=== PATIENT | female | born 1945 | race Caucasian/White ===

== ENCOUNTER → 2017-09-11 12:48 | Outpatient (CLI) | payer MEDICARE, OTHER, SELFPAY | PROVIDERS: Family Provider Internal Medicine; PCP Internal Medicine; Visit Provider Internal Medicine | DX: M85.852 Other specified disorders of bone density and structure, left thigh (principal) | CPT/HCPCS: 77080 ==

== ENCOUNTER 2017-10-21 10:00 | Outpatient (RCR) | payer MEDICARE, OTHER, SELFPAY ==
[2017-09-10 11:56] VITALS: BP 128/60; O2SAT 98; BMI 28.4
--- NOTE | 2017-09-10 12:21 | CR.IEVALNOTE ---
Addendum entered and electronically signed by Naye Harper R.N. 09/18/17 11:46: Due to computer issues unable to deliver document for signature to provider.[facility] Original Note: Addendum entered and electronically signed by Naye Harper R.N. 09/10/17 13:24: * Original Note: Addendum entered by Silva Hurst 09/10/17 13:03: Original Note: CR Initial Assessment Report 4.18.18 AVR CR Cardiac Rehab Initial Assessment Start: 09/10/17 11:30 Freq: Status: Active Protocol: Document 09/10/17 11:56 [facility] (Rec: 09/10/17 12:21 [facility] [id number]) Cardiac Rehabilitation Exercise Risk Risk Moderate % 65 EF Comment: Normal coronary arteries AICD No Pacemaker No Heart Rhythm NSR Right Arm Blood Pressure (90/60-120/80 mmHg) 128/60 H Blood Pressure Method Manual Cuff/Auscultation BP Comment: LEFT 118/78 Apical Resting Heart Rate: 85 Target Heart Rate: 105 Strength: Normal Pulse Rhythm: Regular Pulse Assessment Method Pulse Ox/Monitor Respiratory Effort Non-Labored Lung Sounds: CLEAR BILATERALLY Pulse Oximetry (91-100 %) 98 Nasal Cannula No Cardiac Rehabilitation Nutrition Evaluation Recent Lipid Blood Test Yes Date Blood Test Drawn 10/10/15 Total Cholesterol 311 Triglycerides 132 HDL 68 LDL 217 Lipid Medications Yes: ATORVASTATIN 40MG Goal for Lipids CORONARIES ARE CLEAN History of Diabetes No Cardiac Rehabilitation Weight Management Plan Height 165.1 cm Weight 77.564 kg Body Mass Index (BMI) 28.4 Girth Measurement (in inches) (cm) 45 Patient Goal(s) Lose 1-2 of Girth Lose 5-10 lbs Body Weight BMI Goal of 19-25 Nutrition Evaluation Referral to Diabetes Education No Nurse/Patient Discussion Yes: STATES SHE EATS HEALTHY AND IS DOING PORTION CONTROL BUT CANT LOSE WEIGHT. Patient Following Diet Plan No Patient's Nutritional Goals SHE FEELS ONCE HER HIP SURGERY IS DONE SHE WILL EXERCISE MORE AND LOSE WEIGHT Education Primary Language [place] Hearing Ability Normal Visual Impairment No Limitations Visual Difficutly None Education on Intake Short of Breath Musculoskeletal Pain Tobacco Use N/A Hx Hypertension No Goal of BP <130/80 No Medications Reconciled Yes CR Psychosocial Evaluation Goal GIVE HER CONFEDENCE TO GET IN BETTER SHAPE BEFORE HER HIP SURGERY. Identifies Stressors PAIN IN HER HIP WHICH IS ALSO AFFECTING HER KNEES. 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 DISCUSSED ELEVATING HER LEGS AT NIGHT Stress Management Class Yes Heart Disease & Emotion Film Yes Readiness Cooperative Motivated Patient's Story WENT IN FOR PRE TESTING FOR TOTAL HIP AND MURMUR HAD GOTTEN MUCH WORSE. ECHO SHOWED SEVERE REGURGITATION Treatment Prescribed for Individual Yes Needs Date 09/10/17
--- NOTE | 2017-09-10 12:56 | CR.IEVALNOTE ---
Addendum entered and electronically signed by Doris Craven R.N. 09/12/17 10:24: Computer issues. resending for signatures. Original Note: CR Initial Assessment Report CR Cardiac Rehab Initial Assessment Start: 09/10/17 11:30 Freq: Status: Active Protocol: Document 09/10/17 11:56 [facility] (Rec: 09/10/17 12:21 [facility] [id number]) Cardiac Rehabilitation Exercise Risk Risk Moderate % 65 EF Comment: Normal coronary arteries AICD No Pacemaker No Heart Rhythm NSR Right Arm Blood Pressure (90/60-120/80 mmHg) 128/60 H Blood Pressure Method Manual Cuff/Auscultation BP Comment: LEFT 118/78 Apical Resting Heart Rate: 85 Target Heart Rate: 105 Strength: Normal Pulse Rhythm: Regular Pulse Assessment Method Pulse Ox/Monitor Respiratory Effort Non-Labored Lung Sounds: CLEAR BILATERALLY Pulse Oximetry (91-100 %) 98 Nasal Cannula No Cardiac Rehabilitation Nutrition Evaluation Recent Lipid Blood Test Yes Date Blood Test Drawn 10/10/15 Total Cholesterol 311 Triglycerides 132 HDL 68 LDL 217 Lipid Medications Yes: ATORVASTATIN 40MG Goal for Lipids CORONARIES ARE CLEAN History of Diabetes No Cardiac Rehabilitation Weight Management Plan Height 165.1 cm Weight 77.564 kg Body Mass Index (BMI) 28.4 Girth Measurement (in inches) (cm) 45 Patient Goal(s) Lose 1-2 of Girth Lose 5-10 lbs Body Weight BMI Goal of 19-25 Nutrition Evaluation Referral to Diabetes Education No Nurse/Patient Discussion Yes: STATES SHE EATS HEALTHY AND IS DOING PORTION CONTROL BUT CANT LOSE WEIGHT. Patient Following Diet Plan No Patient's Nutritional Goals SHE FEELS ONCE HER HIP SURGERY IS DONE SHE WILL EXERCISE MORE AND LOSE WEIGHT Education Primary Language DOMINICAN Hearing Ability Normal Visual Impairment No Limitations Visual Difficutly None Education on Intake Short of Breath Musculoskeletal Pain Tobacco Use N/A Hx Hypertension No Goal of BP <130/80 No Medications Reconciled Yes CR Psychosocial Evaluation Goal GIVE HER CONFEDENCE TO GET IN BETTER SHAPE BEFORE HER HIP SURGERY. Identifies Stressors PAIN IN HER HIP WHICH IS ALSO AFFECTING HER KNEES. 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 Ready for Change Number 20 CR Psychosocial Eval Continued Sternotomy Incision WELL HEALED Graft Site & Incision N/A Heart Murmur SLIGHT Lung Sounds CLEAR Edema SLIGHT. DISCUSSED ELEVATING HER LEGS AT NIGHT Stress Management Class Yes Heart Disease & Emotion Film Yes Readiness Cooperative Motivated Patient's Story WENT IN FOR PRE TESTING FOR TOTAL HIP AND MURMUR HAD GOTTEN MUCH WORSE. ECHO SHOWED SEVERE REGURGITATION Treatment Prescribed for Individual Yes Needs Date 09/10/17 Document 09/10/17 12:28 [facility] (Rec: 09/10/17 12:56 [facility] [id number]) Cardiac Rehabilitation Exercise Fall Risk History of Falling (Immediate or No Previous) Secondary Diagnosis (More Than 2 Medical Yes Diagnoses) Ambulatory Aid Crutches/cane/walker IV/Heparin Lock No Gait/Transferring Impaired Mental Status Oriented to own ability Score Total 50 Risk Level High Fall Risk Action Implement High Fall Risk Precautions Comment Large green ball on saucer to decrease angle on hip, next to hand rail Assistive Devices Cane Comment: R Hip, due for surgery, postponed due to Valve repair [place] Activity Status Index 5.04 Home Exercise walking Mode Comment: outside Duration Comment: 10-20 min Frequency Comment: daily Symptoms: Abnormal Gait Difficulty Walking Joint Pain Joint Stiffness Joint Swelling Limited Range of Motion Body Alignment Posture Leaning Ambulation Assistive Device Straight Cane Orthotic/Prosthetic Devices or Brace: No Comment Significant hip pain, requires surgery, postponed due to valve replacement, sternal precautions. L plantar fasciaitis Exercise Nustep METS 2.67 Angina with Exercise no Exercise Tolerance Good Additional Comment Hip pain is limiting factor CR Pre Exercise Evaluation Orientation Self Pulse Check JAMAAL PRE Scale Exercise Safety Equipment Orientation Warm Up/Cool Down Patient Short-term Goal(s) Return to walking, significant hip pain with walking. Increase strength and endurance to be able to do 15- 20 mins on TM in CR in 8 weeks . Patient Group Home Goal(s) Strengthen R Hip to increase stamina and endurance to be able to walk [employer]) and return to gardening by performing all sit to stands and squats unassissted in 12 weeks. CR Exercises Prescription Exercise Duration (minutes) 20 METs (resistance level) 3 Frequency 2xwk RPE 11-14 Comment No arms, monitor hip pain Bicycle RPM (rpm) 50 Bicycle Exercise Duration (minutes) 20 Frequency 2xwk RPE 11-14 Bicycle Exercise Comment Monitor hip pain Pounds 2 Number of Reps 12 Number of Sets 2 Frequency 1xwk RPE 11-13 Comment sternal precautions, monitor hip pain Band Resistance 2 Number of Reps 12 Number of Sets 1 Frequency 1xwk RPE 11-13 Comment sternal precautions, saucer w green ball, monitor hip pain
--- NOTE | 2017-09-10 13:07 | CR.IEVALNOTE ---
CR Initial Assessment Report CR Cardiac Rehab Initial Assessment Start: 09/10/17 11:30 Freq: Status: Active Protocol: Document 09/10/17 11:56 [facility] (Rec: 09/10/17 12:21 [facility] [id number]) Cardiac Rehabilitation Exercise Risk Risk Moderate % 65 EF Comment: Normal coronary arteries AICD No Pacemaker No Heart Rhythm NSR Right Arm Blood Pressure (90/60-120/80 mmHg) 128/60 H Blood Pressure Method Manual Cuff/Auscultation BP Comment: LEFT 118/78 Apical Resting Heart Rate: 85 Target Heart Rate: 105 Strength: Normal Pulse Rhythm: Regular Pulse Assessment Method Pulse Ox/Monitor Respiratory Effort Non-Labored Lung Sounds: CLEAR BILATERALLY Pulse Oximetry (91-100 %) 98 Nasal Cannula No Cardiac Rehabilitation Nutrition Evaluation Recent Lipid Blood Test Yes Date Blood Test Drawn 10/10/15 Total Cholesterol 311 Triglycerides 132 HDL 68 LDL 217 Lipid Medications Yes: ATORVASTATIN 40MG Goal for Lipids CORONARIES ARE CLEAN History of Diabetes No Cardiac Rehabilitation Weight Management Plan Height 165.1 cm Weight 77.564 kg Body Mass Index (BMI) 28.4 Girth Measurement (in inches) (cm) 45 Patient Goal(s) Lose 1-2 of Girth Lose 5-10 lbs Body Weight BMI Goal of 19-25 Nutrition Evaluation Referral to Diabetes Education No Nurse/Patient Discussion Yes: STATES SHE EATS HEALTHY AND IS DOING PORTION CONTROL BUT CANT LOSE WEIGHT. Patient Following Diet Plan No Patient's Nutritional Goals SHE FEELS ONCE HER HIP SURGERY IS DONE SHE WILL EXERCISE MORE AND LOSE WEIGHT Education Primary Language [place]AMBI[place] Hearing Ability Normal Visual Impairment No Limitations Visual Difficutly None Education on Intake Short of Breath Musculoskeletal Pain Tobacco Use N/A Hx Hypertension No Goal of BP <130/80 No Medications Reconciled Yes CR Psychosocial Evaluation Goal GIVE HER CONFEDENCE TO GET IN BETTER SHAPE BEFORE HER HIP SURGERY. Identifies Stressors PAIN IN HER HIP WHICH IS ALSO AFFECTING HER KNEES. 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 DISCUSSED ELEVATING HER LEGS AT NIGHT Stress Management Class Yes Heart Disease & Emotion Film Yes Readiness Cooperative Motivated Patient's Story WENT IN FOR PRE TESTING FOR TOTAL HIP AND MURMUR HAD GOTTEN MUCH WORSE. ECHO SHOWED SEVERE REGURGITATION Treatment Prescribed for Individual Yes Needs Date 09/10/17 Document 09/10/17 12:28 [facility] (Rec: 09/10/17 12:56 [facility] [id number]) Cardiac Rehabilitation Exercise Fall Risk History of Falling (Immediate or No Previous) Secondary Diagnosis (More Than 2 Medical Yes Diagnoses) Ambulatory Aid Crutches/cane/walker IV/Heparin Lock No Gait/Transferring Impaired Mental Status Oriented to own ability Score Total 50 Risk Level High Fall Risk Action Implement High Fall Risk Precautions Comment Large green ball on saucer to decrease angle on hip, next to hand rail Assistive Devices Cane Comment: R Hip, due for surgery, postponed due to Valve repair [place] Activity Status Index 5.04 Home Exercise walking Mode Comment: outside Duration Comment: 10-20 min Frequency Comment: daily Symptoms: Abnormal Gait Difficulty Walking Joint Pain Joint Stiffness Joint Swelling Limited Range of Motion Body Alignment Posture Leaning Ambulation Assistive Device Straight Cane Orthotic/Prosthetic Devices or Brace: No Comment Significant hip pain, requires surgery, postponed due to valve replacement, sternal precautions. L plantar fasciaitis Exercise Nustep METS 2.67 Angina with Exercise no Exercise Tolerance Good Additional Comment Hip pain is limiting factor CR Pre Exercise Evaluation Orientation Self Pulse Check JAMAAL PRE Scale Exercise Safety Equipment Orientation Warm Up/Cool Down Patient Short-term Goal(s) Return to walking, significant hip pain with walking. Increase strength and endurance to be able to do 15- 20 mins on TM in CR in 8 weeks . 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 CR Exercises Prescription Exercise Duration (minutes) 20 METs (resistance level) 3 Frequency 2xwk RPE 11-14 Comment No arms, monitor hip pain Bicycle RPM (rpm) 50 Bicycle Exercise Duration (minutes) 20 Frequency 2xwk RPE 11-14 Bicycle Exercise Comment Monitor hip pain Pounds 2 Number of Reps 12 Number of Sets 2 Frequency 1xwk RPE 11-13 Comment sternal precautions, monitor hip pain Band Resistance 2 Number of Reps 12 Number of Sets 1 Frequency 1xwk RPE 11-13 Comment sternal precautions, saucer w green ball, monitor hip pain
--- NOTE | 2017-10-09 12:07 | CR.REVALNOTE ---
CR Re-Assessment Report Dx: AVR CR Cardiac Rehab Re-Assessment Start: 10/09/17 11:48 Freq: Status: Active Protocol: Document 10/09/17 11:49 [facility] (Rec: 10/09/17 11:54 [facility] [id number]) Cardiac Rehab Exercise Risk Re-Eval Dx: 07/31/17 AVR Risk Moderate Cardiac Rehab Nutrition Re-Eval Lipids Re-Drawn No History of Diabetes No Weight 77.564 kg Progress to Weight Goal NO CHANGE Dietary Consult No Nurse/Patient Discussion Yes Nutrition Class Yes Dietary Goal verbalized by Patient Yes Education Tobacco Use N/A Hypertension 108/70 PRE, 128/84 POST Medications NONE Progress to Goal AT GOAL Medication Reconciled NO CHANGES REPORTED CR Psychosocial Re-Evaluation Progress to Goal NOT MUCH RELIEF OF HIP PAIN Stress Managed YES Psych Consult No Stress Management Class Yes Uses Stress Management Skills Yes Coping Techniques Yes Relaxation Techniques Yes Positive Support Yes CR Psychosocial Provider Eval Treatment Prescribed for Individual Yes Needs Date 10/09/17 Document 10/09/17 11:56 [facility] (Rec: 10/09/17 12:06 [facility] [id number]) Achieved Exercise Re-Evaluation arm bike MET Goal 2.55 Rower MET Goal 3.72 Bike MET Goal 6.17 Nustep MET Goal 3.85 RPE n/a Weights 3 Bands 3 Equipment Goals NS: 4.5 BIKE: 7.0 AB: 3.5 ROW: 4.5 Number/Value 4 LVL 4 Progress to Goal Increase as tolerated % Improvement NS: 44% BIKE: 91% AB: 15% Short Term Still not walking due to hip pain, will try TM tomorrow. Skilled Nursing Not gardening or walking, can perform sit to stands and squats with light assistance.
== END 2017-11-06 15:09 ==
LOC: CAR 10:00
PROVIDERS: Family Provider Internal Medicine; PCP Internal Medicine; Visit Provider Internal Medicine
DX: Z95.2 Presence of prosthetic heart valve (principal)
CPT/HCPCS: 93798

== ENCOUNTER → 2018-01-30 10:09 | Outpatient (CLI) | payer MEDICARE, OTHER, SELFPAY ==
[2018-01-30 10:26] LABS: Bacteria Urine None Seen; RBC Urine None Seen (0-5/HPF); WBC Urine None Seen (0-5/HPF)
[2018-01-30 11:07] LABS: Appearance Urine UA CLEAR; Bilirubin Urine UA NEGATIVE (NEGATIVE); Color Urine UA YELLOW; Glucose Urine UA NEGATIVE (Normal); Ketones Urine UA NEGATIVE (NEGATIVE); Leukocyte Esterase Urine UA NEGATIVE (NEGATIVE); Nitrite Urine UA NEGATIVE (Negative); Occult Blood Urine UA NEGATIVE (Negative); Protein Urine UA NEGATIVE (Negative); Specific Gravity Urine UA 1.025 (1.000-1.035); Urobilinogen Urine UA 0.2 E.U./dL (0.2)
[2018-01-30 11:18] LABS: Add Manual Diff / Slide Review NO; Basophils Percent Auto 1.1 % (0-2); Eosinophils Percent Auto 3.7 % (2-4); Hematocrit 36.9 % (36-46); Hemoglobin 12.9 g/dL (12.0-16.0); Lymphocytes Percent Auto 27.4 % (25-40); Mean Corpuscular HGB Conc 34.9 % (30-36); Mean Corpuscular Hemoglobin 32.9 PG (26-34); Mean Corpuscular Volume 94.3 fL (80-100); Monocytes Percent Auto 8.5 % (3-14); Neutrophils Absolute Auto 3000 /uL (3000-5900); Neutrophils Percent Auto 59.3 % (50-75); Platelet Count 253 X10^3/uL (150-400); Red Blood Cell Count 3.92 X10^6/uL (4.0-5.2); Red Cell Distribution Width 13.1 % (11.6-14.8); White Blood Cell Count 5.1 X10^3/uL (4.5-11.0)
[2018-01-30 11:24] LABS: Culture Indicated Urine Cult Not Indicated; Hyaline Casts Urine 0-1/LPF; Mucus Urine 1+ (Negative); Squamous Epithelial Cell Urine 0-1 /HPF
[2018-01-30 11:56] LABS: Alanine Aminotransferase 39 IU/L (9-52); Aspartate Aminotransferase 29 IU/L (14-36); BUN Creatinine Ratio 18.6 (6-22); Blood Urea Nitrogen 13 mg/dL (7-17); Carbon Dioxide 32 mmol/L (22-32); Chloride 105 mmol/L (98-107); Cholesterol 178 mg/dL (140-199); Estimated Glomerular Filt Rate > 60.0 mL/min (>60); Glucose 104 mg/dL (80-110); HDL Cholesterol 77 mg/dL (40-60); HEMOLYSIS < 15 (0-50); LDL Cholesterol Calculated 80 mg/dL (<100); Potassium 4.8 mmol/L (3.4-5.1); Sodium 146 mmol/L (137-145); Triglycerides 106 mg/dL (35-150)
[2018-01-30 12:21] LABS: TSH w/ Reflex to FT4 3.02 uIU/mL (0.47-4.68)
== END ==
PROVIDERS: Family Provider Internal Medicine; PCP Internal Medicine; Visit Provider Orthopaedic Surgery
DX: Z01.818 Encounter for other preprocedural examination (principal); Z01.812 Encounter for preprocedural laboratory examination; N39.9 Disorder of urinary system, unspecified; R73.09 Other abnormal glucose; I35.0 Nonrheumatic aortic (valve) stenosis; E78.00 Pure hypercholesterolemia, unspecified; E03.9 Hypothyroidism, unspecified
CPT/HCPCS: 36415; 80048; 80061; 81001; 83036; 84443; 84450; 84460; 85025; 93005; 93010

== ENCOUNTER 2018-02-27 06:13 | Inpatient (IN) | payer MEDICARE, OTHER, SELFPAY ==
[2018-02-10 14:19] VITALS: BMI 28.9
[2018-02-27] VITALS (12 sets, daily range): BP systolic 97–132; BP diastolic 5–79; PULSE 66–101; RESP 11–20; TEMP 36.1–36.8; O2SAT 92–100; BMI 28.9
--- NOTE | 2018-02-27 | DI.RAD.S_ITS ---
PROCEDURE: XR HIP W PEL IF DONE RT 2V INDICATIONS: postoperative right hip TECHNIQUE: AP pelvis and lateral view of the right hip acquired. COMPARISON: [facility], [place], XR HIP W PEL IF DONE RT 2V, 02/27/2018, 9:29. FINDINGS: Bones: Patient is status post right hip arthroplasty, with hardware components in expected positions. The hip joint appears congruent. The visualized bony structures appear intact. Soft tissues: Overlying postoperative changes are noted. No suspicious soft tissue densities. IMPRESSION: Normal alignment after right total hip arthroplasty. Dictated by: Antwan Scott M.D. on 02/27/2018 at 12:06 Approved by: Antwan Scott M.D. on 02/27/2018 at 12:07
--- NOTE | 2018-02-27 06:00 | DI.RAD.S_ITS ---
PROCEDURE: XR HIP W PEL IF DONE RT 2V INDICATIONS: intraoperative right hip TECHNIQUE: 2 intraoperative fluoroscopic views of the hip were acquired. COMPARISON: None. FINDINGS: Intraoperative fluoroscopic images of pelvis and right hip shows right hip arthroplasty. Right hip alignment is anatomic. IMPRESSION: Fluoroscopy guidance was intraoperatively for right hip arthroplasty with anatomic alignment. Dictated by: Mc Wolfe M.D. on 02/27/2018 at 11:09 Approved by: Mc Wolfe M.D. on 02/27/2018 at 11:09
[2018-02-27] MEDS: ACETAMINOPHEN 325 MG TABLET 975 MG PO ×3 (06:47→20:40)
[2018-02-27] MEDS: MELOXICAM 7.5 MG TABLET 15 MG PO (06:48)
[2018-02-27] MEDS: PREGABALIN 75 MG CAPSULE PO (06:48)
[2018-02-27] MEDS: LACTATED RINGERS 1,000 ML 42 ML IV ×3 (06:50→11:06)
[2018-02-27] MEDS: VANCOMYCIN 1,000 MG/200 ML FROZ.PIGGY 200 MG IV (07:00)
--- NOTE | 2018-02-27 08:06 | PM.PREOP ---
Pre-operative Note Interval Note Pre-op Check: Yes History & Physical Reviewed by Physician and Yes Exam Performed Changes: No
--- NOTE | 2018-02-27 08:07 | PM.OP.1 ---
Operative Date/Time/Diagnoses Date of procedure: 02/27/18 Time of procedure: 08:07 Pre-op diagnosis: right hip oa Post-op diagnosis: same Procedure & Clinicians Procedure: Right total hip arthroplasty Same procedure as scheduled: Yes Indications: The patient has had progressively worsening right hip pain with radiographic changes consistent with arthritis. Non-operative management has failed and the patient has requested total hip replacement. The risks, benefits and alternatives to surgery were discussed with the patient prior to proceeding. Risks discussed included, but were not limited to, failure to relieve pain, leg length discrepancy, dislocation, stiffness, infection, nerve damage, deep venous thrombosis, pulmonary embolism, stroke, coma, heart attack, permanent paralysis and , as well as the potential need for eventual revision of the prosthetic. Surgeon: Nighat Moy Office Machine Embossograph Operator: Bolivar Lopez Anesthesia Type: Spinal and Sedation Operative Notes Findings: Severe right hip osteoarthritis, good stability Closure Type: primary Specimen(s): none sent Implants & Drains: [employer] R3 52 cup, 36 x 52 poly, size 6 standard offset with a 36 by -3 Oxinium head Estimated Blood Loss (mL): 300 Blood products transfused: none Procedure in detail: The patient was brought to the operating room. Patient was carefully positioned in the supine position. Time-out was performed and antibiotics were given. Anesthesia was induced. She was positioned in the on the table in order to allow hyperextension of the hip. Bilateral lower extremities were prepped and draped in a standard sterile fashion. An anterior right hip incision was made 1 fingerbreadth lateral to the anterior superior iliac spine and extended distally towards the greater trochanter. Dissection was carried out through skin and subcutaneous tissues. The skin and subcutaneous tissues were carefully injected with Lidocaine with epi. Superficial hemostasis was achieved. The fascia over the tensor fascia fidelina was defined and incised with a knife. Two Allis clamps were used to grasp the fascia. Tensor fascia fidelina was retracted laterally. A gelpi retractor was placed. Dissection was carried out down along the neck. The circumflex vessels were carefully identified and cauterized with the Aqua Mantis. There was good visualization of the femoral neck. A Cobra was placed superior to the neck and the gluteus fibers were carefully stripped from that superior aspect of the capsule. A 2nd retractor was placed along the inferior aspect of the neck. The rectus insertion along the capsule was partially released. A 3rd retractor that was then gently placed over the rim of the acetabulum under the rectus. Capsule was carefully incised and released from the intertrochanteric line circumferentially superior to the mid sagittal line and inferiorly to the mid sagittal line until the lesser trochanter was palpable. A tag stitch was placed both in the superior and inferior limb of the capsular insertion. Along the acetabulum capsule was also released up to the mid sagittal 12:00 position. A portion of the labrum was resected. A saw was used to perform an osteotomy at the level of the intertrochanteric line and the junction of the superior femoral neck leaving approximately 1 finger breath of residual inferior neck above the lesser trochanter. There were moderate osteophytes along the anterior acetabular rim which were carefully removed. A 2nd cut was made along the femoral neck at the base of the head and a napkin ring of neck was removed. Corkscrew was placed in the femoral head and the head was removed without difficulty. Retractors were then repositioned around the acetabulum. Residual labrum was resected and additional osteophytes were removed. A reamer that was 4 mm below the templated size was placed by hand in the acetabulum and it was reamed to centralize the acetabulum. It was then reamed up to 2 under the templated size and fluoroscopy was brought in to confirm the position of the reaming and depth of reaming. I reamed 1 under the anticipated size and touched the rim with line to line reaming. A trial cup was placed and noted that it was appropriately sized and fluoroscopy confirmed position and depth. The component was open and inserted without difficulty fluoroscopic imaging was used to confirm that the cup had been adequately seated and was well positioned. Neutral poly trial liner was placed. The cup was tested and noted to be stable. Attention was then directed to the femur. The femur was gently hyperextended additional capsular release was performed as needed in order to allow adequate visualization of the proximal femur with elevation of the femur. Patient was placed in a hyperextended slightly abducted position with maximum external rotation. Box osteotome was used to check for any residual neck as well as sclerotic bone along the trochanter. Wyckoff pepper was placed in the femur. Additional broaching was performed. Canal finder was used to determine the alignment of the canal and position. Size 1 broach was placed. The canal was then appropriately broached up to the templated size as long as there was adequate stability of the broach and serial advancement of the broach without excessive impingement. Specific attention was directed at avoiding varus attempting to direct the distal aspect of the broach more anteriorly and avoiding excessive anteversion. Trial reduction showed acceptable range of motion, good stability, no posterior impingement, caodaism of leg length and appropriate lateral shuck. I also hyperflexed the hip and checked that there was no impingement anteriorly and there was good stability with flexion, abduction and internal rotation. Final neutral poly was placed without difficulty. Marcaine and Exparel were injected.. The stem was placed without difficulty. Repeat trial reduction and x-ray showed acceptable overall position, length, and no evidence of the femoral fracture. Final head was placed. Wound was meticulously irrigated with normal saline. The hip was reduced and additional Exparel and Marcaine were injected. The capsule was closed with interrupted nonabsorbable sutures. The fascia of the tensor was closed with interrupted and running Vicryl. No drain was placed. Any tensor fascia fidelina muscle that appeared to be contused or injured which was a minimal amount was carefully resected. Capsule around the tensor was injected with Exparel and Marcaine. The skin was closed with barbed stitches for the subcutaneous tissue and skin. We also used surgical glue. The wound was dressed sterilely. Brief Betadine soak was also used and was meticulously irrigated with normal saline. Patient was transferred to recovery room in satisfactory condition. Complications: none Condition: stable Disposition: Acute Care Plan for aftercare: The patient will be maintained on a standard total hip replacement protocol with weight bearing as tolerated and anterior hip precautions. The patient will receive Aspirin and sequential compression devices for DVT prophylaxis. The patient will be discharged home when safe for the home environment.
[2018-02-27] MEDS: CEFAZOLIN 2 GM/100 ML FROZ.PIGGY IV ×2 (08:08→16:25)
--- NOTE | 2018-02-27 08:40 | SUR.OPER ---
Supine, head on pillow, torso on pink pad positioner. Iliac crest at flex of foot end of table. Gel roll under operative hip. Both arms secured on arm boards <90 degrees abduction.
[2018-02-27] MEDS: LIDOCAINE 1% W/EPI INJ 20 ML INJ (08:57)
[2018-02-27] MEDS: BUPIVACAINE LIPOSOME 266 MG/20 ML VIAL INJ (08:58)
[2018-02-27] MEDS: BUPIVACAINE 0.25% W/ EPI VIAL 50 ML INJ (08:58)
[2018-02-27] MEDS: POVIDONE-IODINE 15 ML, SODIUM CHLORIDE 0.9% 250 ML TOP (09:09)
[2018-02-27] MEDS: LACTATED RINGERS 1,000 ML 125 ML IV ×2 (13:54→22:37)
--- NOTE | 2018-02-27 14:25 | PC.NURSE ---
Admit Note: Patient admitted to Acute Care s/p R hip replacement. Patient not cath in surgery. Patient bladder with greater than 450mls. Patient straight cathed per protocol after patient unable to void on bedpan. 600mls out via cath. Patient oriented times 4. Patient oriented to room, bed and call light. Denies pain at this time. No acute distress, at bedside.
--- NOTE | 2018-02-27 16:01 | PT.IIE ---
Addendum entered and electronically signed by Lou Post PT 02/28/18 10:29: This is to certify that I have reviewed this documentation and POC Original Note: Current Diagnoses Unilateral primary osteoarthritis, right hip (02/27/18) Pain in right hip (02/27/18) Surgery Performed Operation Date: 02/27/18 07:45 Actual Procedures p Total Hip Arthroplasty/Anterior Approach(Right) - Nighat Moy MD Surgical History (Last Updated 02/10/18 @ 15:22 by Jacqueline Malcolm RN) H/O aortic valve replacement (Acute ~08/02/17) H/O cardiac catheterization (Acute) History of ankle surgery (Acute) History of esophagogastroduodenoscopy (EGD) (Acute) Medical History (Last Updated 02/10/18 @ 15:22 by Jacqueline Malcolm RN) Anemia (Acute) Aortic stenosis (Acute) Arthritis (Acute) Bilateral cataracts (Acute) Esophageal stricture (Acute) Esophagitis (Acute) GERD (gastroesophageal reflux disease) (Acute) Heartburn (Acute) Hiatal hernia (Acute) History of migraine with aura (Acute) Hyperlipidemia (Acute) Hypothyroidism (Acute) Lumbar degenerative disc disease (Acute) Pain in right hip (Acute) Palpitations (Acute) Postmenopausal (Acute) Psoriasis (Acute) Pulmonary artery congenital abnormality (Acute) Restless leg syndrome (Acute) Tinnitus (Acute) Urinary incontinence (Acute) Physical Therapy Inpatient Evaluation/Re-Eval M1 PT/OT-IP Prior Functional Status Start: 02/27/18 17:01 Freq: NEEDED Status: Active Protocol: Document 02/27/18 16:01 (Rec: 02/27/18 17:36 [email or web address]) Medical Review Prior Functional Status Medical History Reviewed Yes Communication No deficits noted. Mobility and Gait Pt previously independent with all mobilities using no AD including driving and self care. She does however state limited ambulation distances ~ 50 ft with no AD. She uses the grocery cart to lean on for shopping. Social History Household Members spouse Living Arrangements House Number of Floors (Floors) One Floor Number of Stairs To Enter/Railing? 1 step to enter Home Environment High Toilet Walk in Shower Home Equipment Front Wheel Walker Straight Cane Shower Seat without Backrest Grab Bars In Shower Employment Status Retired Additional Social History Comment Pt lives with (Chandana) who is avaliable for 24/7 assist. Pt also owns [employer] mechanical bed. Pt can push on a sink/counter on the L to get up from toilet . M2 PT-IP Current Condition Start: 02/27/18 17:01 Freq: NEEDED Status: Active Protocol: Document 02/27/18 16:01 (Rec: 02/27/18 17:36 [email or web address]) Physical Therapy Current Condition Current Condition Evaluation Date 02/27/18 Treatment Diagnosis R SHAISTA; Difficulty walking Onset Date 02/27/18 Precautions Anterior Hip Precautions No Hip Extension No Hip External Rotation Weight Bearing Status Weight Bearing Status Weight Bear as Tolerated M3 PT-IP Subjective Start: 02/27/18 17:01 Freq: NEEDED Status: Active Protocol: Document 02/27/18 16:01 (Rec: 02/27/18 17:36 [email or web address]) Subjective Physical Therapy Visit Type Type Initial Evaluation Visit Start Time 16:01 Visit Stop Time 16:44 Total Visit Minutes 43 Number of BATCH ATTENDANT Visits 0 Physical Therapy Visit Comments Patient Comments Pt agreeable to mobilize with PT. Patient Goals Plans to d/c home with her who is avaliable for 24/7 assist. Therapy Pain Assessment Pain When Pain Assessed During Mobility Pain Present Pain Present Pain Reported Location Right Hip Intensity 5 Scale Used Numeric (1 - 10) Pain Management Techniques Apply Cold Modification of Treatment Re-positioning Timing of Activity with Medications M4 PT-IP Mobility and Gait Start: 02/27/18 17:01 Freq: NEEDED Status: Active Protocol: Document 02/27/18 16:01 (Rec: 02/27/18 17:36 [email or web address]) PT-Bed Mobility Assessment Supine to Sit Supine to Sit Moderate Assistance Head of Bed Elevated Scooting Scooting to Edge of Bed Standby Assistance PT-Transfer Assessment Sit to and From Stand Sit to and from Stand Minimal Assistance 1 Person Assistance Use of Upper Extremities Equipment Transfer Assistive Device Gait Belt Front Wheeled Walker Orthotic/Prosthetic Devices or Brace: No Transfers Transfer Destination Chair Toilet Transfer Technique Ambulates between surfaces Comments Mobility Comments Resting HOB elevated 104/51 HR 80. Supine > sit is performed with Rosa, pt needing assist to get upper body upright. States slight dizziness so VSS monitored. Seated 101/64 HR 79. Sit <> stand is Rosa, min cues and pt uses BUE. Standing BP 101/58 HR 86. Pt denies continued dizziness. Gait Assessment Gait Gait Assistance Required: Contact Guard Assist Distance (Feet) 25 Able to Maintain Weight Bearing Status Yes During Gait Assistive Devices Assistive Device Gait Belt Front Wheeled Walker Orthotic/Prosthetic Devices or Brace: No Gait Deviations General Gait Pattern Decreased Stride Length Decreased Feet Clearance Step-to Gait Factors Limiting Gait Function Factors Limiting Gait Function Decreased Activity Tolerance Decreased Sensation Decreased Strength Limited Range of Motion Pain Poor Balance Poor Safety Awareness Comments Gait Comments Pt ambulates 25 ft in room (to /from bathroom) with fww and CGA and requiring min cues to utilize step-to gait pattern leading with RLE to maintain anterior hip precautions. She demonstrates significantly limited step length and significanly low clearance steps. She is slow and guarded with gait. She corrects slightly forward flexed posture with min cues. PT-Balance Assessment Sitting Balance and Reactions Static Sitting Balance Ability Good Dynamic Sitting Balance Ability Good Standing Balance and Reactions Static Standing Balance Ability Good Dynamic Standing Balance Ability Fair Device Used fww M5 PT-IP Objective Assessments Start: 02/27/18 17:01 Freq: NEEDED Status: Active Protocol: Document 02/27/18 16:01 (Rec: 02/27/18 17:36 [email or web address]) Orientation Orientation/Cognition Level of Alertness Alert Orientation Name Age Birthday Month Date Year Day of Week Place Situation Language Function Ability No Deficits Noted Safety Awareness Decreased Safety Awareness Gross Range of Motion Lower Extremity ROM Assessment Right Impaired Impairments Limited by precautions. Strength Lower Extremity Strength Assessment Right Impaired Comments Strength Comments LLE WNL. RLE 3+/5 Sensation Assessment Sensation Light Touch Intact Comments Sensation Comments Light touch sensation is intact however, pt reports some tingling in her thighs B. M6 PT-IP Treatment Start: 02/27/18 17:01 Freq: NEEDED Status: Active Protocol: Document 02/27/18 16:01 (Rec: 02/27/18 17:36 [email or web address]) Physical Therapy Treatment Education Education Provided Precautions Weight Bearing Status Post-Op Packet Safety M7 PT-IP Assessment and Plan Start: 02/27/18 17:01 Freq: NEEDED Status: Active Protocol: Document 02/27/18 16:01 (Rec: 02/27/18 17:36 [email or web address]) PT Summary Assessment and Plan Potential Rehabilitation Potential Good Status of Condition at Evaluation Stable Summary Impairments Pain ROM Strength Balance Bed Mobility Transfers Gait Activity Tolerance Progress Towards Goals Progressing Toward Goals Assessment Summary Pt s/p R SHAISTA with difficulty walking. She was able to ambulate 25 ft in room with fww CGA and required modA with bed mobility and Rosa with sit <> stand transfers. Pt needs to complete stair climbing, progress ambulation, and complete caregiver training. Once completed and pt is medically stable, recommend d/c to home with 24/ 7 assist of and OP PT. Goals Bed Mobility Goal Standby Assistance Transfer Goal Standby Assistance Front Wheeled Walker Gait Goal Standby Assistance Front Wheel Walker Gait Distance 50 Days to Meet Goals 3 Frequency of Treatment Frequency Of Treatment Twice a Day Treatment Plan Physical Therapy Treatment Plan Bed Mobility Training Transfer Training Gait Training Therapeutic Exercise Balance Retraining Post Op Education Discharge Planning Hot or Cold Pack Neuromuscular Re-ed Coordination Retraining Manual Therapy Other Recommendations and Next Treatment Progress ambulation and stair Focus climbing. Recommendations To Nursing Amount of Assist Needed 1 Person Assist Discharge Recommendations PT Discharge Recommendations Home with 24/7 Assist Outpatient PT
--- NOTE | 2018-02-27 16:54 | PC.NURSE ---
Pt admits to right hip surgical pain 5/10 with movement. P.T. is with pt and mobilizes pt. Scheduled tylenol administered. Pt refused zofran stating no nausea. Pt reports hip pain improves with movement and denies pain after toileting and placed in recliner by P.T. Able to void in toilet and in collection device in toilet without difficulty. Spouse is present, attentive and involved in pt's care. Pt reports sensation to RLE has returned.
[2018-02-27] MEDS: CYANOCOBALAMIN (VITAMIN B-12) 500 MCG TABLET 2500 MCG PO (20:41)
[2018-02-27] MEDS: ASPIRIN EC 81 MG TABLET PO (20:41)
[2018-02-27] MEDS: MULTIVITAMIN 1 TABLET 1 TAB PO (20:41)
[2018-02-27] MEDS: DOCUSATE 100 MG CAPSULE PO (20:41)
[2018-02-28] MEDS: CEFAZOLIN 2 GM/100 ML FROZ.PIGGY IV (00:11)
[2018-02-28 00:13] VITALS: BP 93/57; PULSE 82; RESP 16; TEMP 36.9; O2SAT 99
--- NOTE | 2018-02-28 04:10 | PC.NURSE ---
Pt is A and O x 4, VSS, hypotensive at 93/57. Pt able to void clear yellow qs, + BTs, S1, S2 and LS clear. Pain is covered with APAP. Dressing is C/D/I.
[2018-02-28 06:10] VITALS: BP 119/72; PULSE 82; RESP 16; TEMP 37.1; O2SAT 97
[2018-02-28 07:04] LABS: Hematocrit 26.8 % (36-46); Hemoglobin 9.8 g/dL (12.0-16.0)
[2018-02-28 07:51] VITALS: BP 106/64; PULSE 85; RESP 18; TEMP 36.7; O2SAT 100
[2018-02-28] MEDS: LEVOTHYROXINE 50 MCG TABLET PO (08:11)
[2018-02-28] MEDS: VITAMIN B COMPLEX 1 CAPSULE 1 CAP PO (08:11)
[2018-02-28] MEDS: POLYETHYLENE GLYCOL 3350 17 GM POWD.PACK PO (08:11)
[2018-02-28] MEDS: CYANOCOBALAMIN (VITAMIN B-12) 500 MCG TABLET 2500 MCG PO (08:11)
[2018-02-28] MEDS: MULTIVITAMIN 1 TABLET 1 TAB PO (08:11)
[2018-02-28] MEDS: DOCUSATE 100 MG CAPSULE PO (08:11)
[2018-02-28] MEDS: ATORVASTATIN 20 MG TABLET 40 MG PO (08:11)
[2018-02-28] MEDS: ACETAMINOPHEN 325 MG TABLET 975 MG PO (08:12)
[2018-02-28] MEDS: ASPIRIN EC 81 MG TABLET PO (08:12)
[2018-02-28] MEDS: ASCORBIC ACID 500 MG TABLET PO (08:12)
[2018-02-28] MEDS: IBUPROFEN 600 MG TABLET PO (08:13)
--- NOTE | 2018-02-28 09:01 | P.DS_ITS ---
History of Present Illness Date Patient Seen: 02/28/18 Time Patient Seen: 08:56 Chief complaint: [id number] Narrative: Patient is a 9-year-old female with history of right hip osteoarthritis. She failed conservative measures and elected to proceed with a right total hip replacement with Dr. Moy at [facility]. Discharge Providers Date of admission: 02/27/18 06:13 Primary care physician: Jennifer Darby MD Consults: 02/27/18 06:00 Consult to Anesthesiology Routine Comment: Consulting Provider: Anesthesiologist Reason for consultation: Regional block for post operative pain control 02/27/18 12:57 Consult to Discharge Planning Routine Comment: Consult to Physical Therapy Evaluate & Treat Comment: OOB, anterior Physician Instructions: post op SHAISTA protocol Consult to Respiratory Therapy Evaluate & Treat Comment: Physician Instructions: Evaluate and treat Discharge provider: Silva Gamino PA-C Discharge Date: 02/28/18 Summary Discharge Diagnosis: Right hip osteoarthritis Postoperative anemia Hospital Course: Patient was admitted taken operating room where she had a right anterior total hip replacement by Dr. Moy. She recovered well and was transferred to the floor for further care. Postop day 1 patient's pain was under control, she was ambulating well, eating and drinking well, able to urinate without difficulty and was ready to be discharged home. She will be discharged home pending clearance from Physical therapy this morning. She has her discharge pain medications and will be given a rx for Vistaril for muscle spasms. Her H&H was 9.8/26.8 and she will start taking iron when she gets home. Status at Discharge Cognitive/behavioral status at discharge: Alert and orient x3 Functional status at discharge: uses cane/walker Overall status at discharge: patient is progressing back to baseline Exam Vital Signs (past 8 hours): - 02/28/18 06:10 Temperature 98.8 F Pulse Rate 82 Respiratory Rate 16 Blood Pressure 119/72 Pulse Oximetry 97 Oxygen Delivery Method Room Air Narrative Exam Narrative: Patient in bed. Appears comfortable. Alert orient x3. Right hip dressing clean dry and intact. Moderate swelling and right anterior thigh. 5/5 right ankle strength. Bilateral calves soft and nontender. Neurovascular status intact. Objective Labs Result Diagrams: 02/28/18 06:45 Labs: Laboratory Results - last 24 hr 02/28/18 06:45 Hgb 9.8 L Hct 26.8 L Discharge Plan Discharge Plan Patient Disposition: Home Discharge comment: Take aspirin 81 mg twice a day x6 weeks for DVT prophylaxis. Call schedule [facility] and set up physical therapy next week. Do not take more than 4000 mg/day of Tylenol from all sources. Take home medication of iron once daily. Discharge Med Rec/Prescriptions Prescriptions: New acetaminophen 325 mg Tablet 975 mg PO TID Qty: 0 RF: 0 aspirin 81 mg Tablet,Delayed Release (Dr/Ec) 81 mg PO BID Qty: 0 RF: 0 oxycodone 5 mg Tablet 5 mg PO Q4H PRN (Reason: Pain, Moderate (4-6)) Qty: 0 RF: 0 hydroxyzine pamoate [Vistaril] 25 mg capsule 25 mg PO Q6H PRN (Reason: muscle spasm) Qty: 40 RF: 0 Continue melatonin 5 MG tablet 5 mg PO HSP PRN (Reason: Sleep) Qty: 0 RF: 0 atorvastatin 40 MG tablet 40 mg PO QAM Qty: 0 RF: 0 levothyroxine 50 mcg Tablet 50 mcg PO DAILY RF: 0 multivitamin [Multiple Vitamins] Tablet 1 tab PO BID RF: 0 ascorbic acid (vitamin C) [Vitamin C] 500 mg Tablet 500 mg PO DAILY RF: 0 cyanocobalamin (vitamin B-12) [Vitamin B-12] 2,000 mcg Tablet Extended Release 2,500 mcg PO BID RF: 0 vitamin B complex [Super B-50 Complex] Capsule 1 cap PO DAILY RF: 0 calcium carbonate-vitamin D3 [Calcium 500 + D (D3)] 500 mg(1,250mg) -125 unit Tablet 1 tab PO BID RF: 0 inulin [Fiber Gummies] 2 gram Tablet,Chewable 1 tab PO BID RF: 0 Discontinued aspirin 81 mg Tablet,Delayed Release (Dr/Ec) 81 mg PO DAILY RF: 0 Follow up/Referrals: Nighat Moy MD [Physician] - (Follow-up is scheduled date and time. Contact office with any issues or concerns.) Provider Discharge Instructions Diet: Diet as Tolerated Activity: Weightbearing as tolerated. Ambulate with assistance of a walker/ cane. Anterior hip precautions. Cold/Heat Therapy: Apply ice to the extremity as needed for pain and swelling. Skin/Wound/Dressing Care Report to your healthcare provider any signs of infection, such as:: chills, fever, increased pain and unusual drainage Dressing: Keep dressing clean dry and intact. May shower with dressing on. Discharge Data Primary Care Provider: Jennifer Darby Attending Provider: Nighat Moy Admit Date/Time: 02/27/18 06:13 Quality VTE Deep Vein Thrombosis/Pulmonary Embolism Present on Admission: No
--- NOTE | 2018-02-28 10:40 | PT.IPTN ---
Current Diagnoses Unilateral primary osteoarthritis, right hip (02/27/18) Pain in right hip (02/27/18) Surgery Performed Operation Date: 02/27/18 07:45 Actual Procedures p Total Hip Arthroplasty/Anterior Approach(Right) - Nighat Moy MD Physical Therapy Treatment Note M2 PT-IP Current Condition Start: 02/27/18 17:01 Freq: NEEDED Status: Active Protocol: Document 02/27/18 16:01 (Rec: 02/27/18 17:36 [email or web address]) Physical Therapy Current Condition Current Condition Evaluation Date 02/27/18 Treatment Diagnosis R SHAISTA; Difficulty walking Onset Date 02/27/18 Precautions Anterior Hip Precautions No Hip Extension No Hip External Rotation Weight Bearing Status Weight Bearing Status Weight Bear as Tolerated M3 PT-IP Subjective Start: 02/27/18 17:01 Freq: NEEDED Status: Active Protocol: Document 02/28/18 09:51 LJ (Rec: 02/28/18 10:40 [email or web address] [id number]) Subjective Physical Therapy Visit Type Type Treatment Note Visit Start Time 09:51 Visit Stop Time 10:25 Total Visit Minutes 34 Number of CERAMIC MAKER DEMONSTRATOR Visits 1 Physical Therapy Visit Comments Patient Comments pt sitting in chair with family present. Agreed to get up and attempt stairs required for discharge. Patient Goals Plans to d/c home with her who is avaliable for 05/11 assist. Therapy Pain Assessment Pain When Pain Assessed During Mobility Pain Present Pain Present Pain Reported M4 PT-IP Mobility and Gait Start: 02/27/18 17:01 Freq: NEEDED Status: Active Protocol: Document 02/28/18 09:51 LJ (Rec: 02/28/18 10:40 [email or web address] [id number]) PT-Transfer Assessment Sit to and From Stand Sit to and from Stand Standby Assistance Use of Upper Extremities Equipment Transfer Assistive Device Gait Belt Front Wheeled Walker Orthotic/Prosthetic Devices or Brace: No Transfers Transfer Destination Bed Transfer Technique Stand Step Pivot Comments Mobility Comments Pt SBA for sit>stand. Return to bed pt requires min assist for LEs. Able to scoot up in bed with SBA. Able to follow precautions also. Gait Assessment Gait Gait Assistance Required: Contact Guard Assist Distance (Feet) 75 Able to Maintain Weight Bearing Status Yes During Gait Assistive Devices Assistive Device Gait Belt Front Wheeled Walker Orthotic/Prosthetic Devices or Brace: No Gait Deviations General Gait Pattern Decreased Stride Length Decreased Feet Clearance Step-to Gait Factors Limiting Gait Function Factors Limiting Gait Function Decreased Activity Tolerance Decreased Strength Limited Range of Motion Pain Poor Balance Comments Gait Comments Pt ambulates in hallway 75' to practise step up required to get into house. Stair Climbing Assessment Evaluation Level of Assist On Stairs Minimal Assistance Devices Stair Climbing Assistive Devices None Front Wheel Walker Technique/Endurance Stair Climbing Direction Ascend and Descend Stair Climbing Technique Step to Step Number of Steps Climbed 1 Query Text: Stair Climbing Set # Repetitions (reps) 2 Comments Stair Climbing Comments Pt attemptes with FWW but states it might not fit on their step at home. Second practise pt sttempted with assist from . Pt demonstrates proper foot placement ascending and descending step. Pt safe on step and ambulating in hallway . M5 PT-IP Objective Assessments Start: 02/27/18 17:01 Freq: NEEDED Status: Active Protocol: Document 02/27/18 16:01 (Rec: 02/27/18 17:36 [email or web address]) Orientation Orientation/Cognition Level of Alertness Alert Orientation Name Age Birthday Month Date Year Day of Week Place Situation Language Function Ability No Deficits Noted Safety Awareness Decreased Safety Awareness Gross Range of Motion Lower Extremity ROM Assessment Right Impaired Impairments Limited by precautions. Strength Lower Extremity Strength Assessment Right Impaired Comments Strength Comments LLE WNL. RLE 3+/5 Sensation Assessment Sensation Light Touch Intact Comments Sensation Comments Light touch sensation is intact however, pt reports some tingling in her thighs B. M6 PT-IP Treatment Start: 02/27/18 17:01 Freq: NEEDED Status: Active Protocol: Document 02/28/18 09:51 [email or web address] (Rec: 02/28/18 10:40 [id number]) Physical Therapy Treatment Education Education Provided Precautions Weight Bearing Status Post-Op Packet Safety M7 PT-IP Assessment and Plan Start: 02/27/18 17:01 Freq: NEEDED Status: Active Protocol: Document 02/28/18 09:51 CYNTHIA (Rec: 02/28/18 10:40 [id number]) PT Summary Assessment and Plan Summary Impairments Pain ROM Strength Balance Bed Mobility Transfers Gait Activity Tolerance Progress Towards Goals Safe For Discharge Goals Met Assessment Summary Pt ableto ambulate in hallway 75' or more with SBA from . Sucessfully performed step up and down from step x 2 with FWW and also with only assist from . Demonstrates safe foot placement and awareness of precautions in all ambulation, transfers into /out of chair and bed. performed the assists for pt. Safe to d/c home. Goals Bed Mobility Goal Standby Assistance Transfer Goal Standby Assistance Front Wheeled Walker Gait Goal Standby Assistance Front Wheel Walker Gait Distance 50 Days to Meet Goals 3 Frequency of Treatment Frequency Of Treatment Twice a Day Treatment Plan Physical Therapy Treatment Plan Bed Mobility Training Transfer Training Gait Training Therapeutic Exercise Balance Retraining Post Op Education Discharge Planning Hot or Cold Pack Neuromuscular Re-ed Coordination Retraining Manual Therapy Recommendations To Nursing Amount of Assist Needed 1 Person Assist Discharge Recommendations PT Discharge Recommendations Home with 05/11 Assist Outpatient PT
--- NOTE | 2018-02-28 11:07 | CM.DANOTE ---
Patient is a 72 year old female who was admitted on 02/27/18 for Right Hip. Pt has M[place] and [place] for [place] and her PCP is Dr. Jennifer Darby. EMR was reviewed. Per Ortho PA, pt has good pain management control, ambulating well, and able to urinate and stable for d/c home after PT this morning. Per PT, recommending safe d/c home with 24/7 assist and outpt PT. SW met bedside with pt and spouse and explained role and they confirmed that they live at home in [place] and pt does not use DME at baseline for ambulation and is Independent with ADL's at baseline. Pt denies any hx of HH or SNF and states her DPOA is her spouse Chandana Su and then her adult son consecutively and she plans to get a copy of DPOA on record here at the hospital. Pt and spouse preference is to d/c home this afternoon and do not anticipate any SW needs at d/c. Plan: Patient to d/c home today via spouse POV and No SW needs at this time. REBEKAH Payne Discharge Planning/Care Management CM Discharge Assessment Start: 02/28/18 11:05 Freq: Status: Active Protocol: Document 02/28/18 11:05 (Rec: 02/28/18 11:07 [id number]) Discharge Planning Assessment Assigned Natural Science Manager REBEKAH Farris DPOA/Assigned Designee Name Spouse Chandana Su Contact Information [phone] Advance Directives? Yes Advance Directives on File Yes History Provided By Patient Significant Other Medical Record Has Patient been admitted in last 30 No days? Prior Living Arrangements House Household Members spouse Type of transporation used prior to Drives own vehicle admit Comment Patient is Independent at baseline with no use of DME Independent with ADL's Yes Is patient alert and oriented? Yes Caregiver for Another No Community Services used prior to Physical Therapy admission: Patient/Family Preference OP PT Therapy Comment Home with spouse assist and outpt pt Barriers to Discharge No Discharge Plan Home Community Services Physical Therapy Transportation Arrangement Spouse bedside and can provide transport for d/c today Referrals Initiated None needed Whiteboard Updated in Patient Room with Yes name and ext. # of Natural Science Manager Review Status In Process Please Provide Date Initial DC 02/28/18 Assessment Was Performed Next Review Type Continued Stay Review Pre-Anesthesia Assessment Start: 10/29/18 14:19 Freq: Status: Complete Protocol: Document 02/10/18 14:19 VLJ (Rec: 02/10/18 14:29 [id number]) Pre-Anesthesia Assessment Patient Also Known As Maldonado (AKA) Patient Information Reviewed Via Chart Review Phone Assessment Assessment Completed With Patient Primary Care Provider Jennifercecile Darby Seen Specialist in Last 12 Months Yes Specialist Seen Director [employer] Orthopedist Other Comment Cardiac surgeon Primary Language Omani Bolt Labeler Required No Height 165.1 cm Weight 78.925 kg Body Mass Index (BMI) 28.9 Hearing Ability Normal Visual Impairment Partially Limited Visual Assist Glasses Comment Reading glasses Hx Anesthesia Reactions No Hx Family Anesthesia Reaction No Hx Malignant Hyperthermia No Anesthesia Review 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 No Does patient have LINDSEY/SOB Yes: R/T inactivity Hx Sleep Apnea No Will Bring CPAP/BIPAP DOS No Comment Shallow breather Currently Taking a Beta Gissel No Can You Climb a Flight of Stairs Without No SOB Hx Chest Pain No Hx SOB Yes Hx Syncope or Dizziness No Anti-Coagulant Therapy No Has a Director [employer] Yes: Will see Jorje 1 yr post -op Cardiac Testing Yes: Echo IH 06/02 Hx Pacemaker/ICD No Pacemaker Rep Required? No Diet Type At Home Regular dysphagia Yes: Resolved w/mediation Bladder Pattern Incontinent, Stress Urgency Urinary Catheter Present No Hx Urinary Self Catheterization No Comment Wears a pad Diabetes No Patient No Lactating No Hx Drug Resistant Organism No Presence of External or Internal Medical Yes: Pig-valve Devices Have you traveled outside the [place] in the last 30 days? Marital Status Lives With spouse friend(s) Prior Living Arrangements House Number of Floors (Floors) One Floor Number of Stairs To Enter/Railing? One step into home Support System Friend(s) Spouse Does the Patient Have Assistance After Yes Surgery Patient Discharge Plan Description Home Health Comment Plans 1-2 night stay Feels Safe in Current Environment Yes Been Physically Hurt or Threatened By a No Person in Current Environment Do you have thoughts of harming yourself None or others? Are you currently considering suicide? No Do you have a plan to hurt yourself or No Plan others? Do You Have Any Spiritual Beliefs That No May Affect Your HC Choices? Do You Have Any Cultural Practices That No May Affect Your HC Choices? Spiritual Referral None Who Can We Speak to About Patient's Care Family & Friends Identifying Code for Release of Patient Declines Information Health Care Proxy/Next of Kin Chandana Su - Health Care Proxy Emergency Contact Name Same Emergency Contact Phone Number Same Advance Directives? Yes Advance Directives on File Yes Power of Preparing Box Tender Yes Power of Preparing Box Tender Name Chandana Su - Power of Preparing Box Tender PAC Instructions Assistance for 24 hours post- op Do not shave/clip surgical site Durable medical equipment Medications to take/avoid Nasal antibiotic No ETOH/petroleum product on skin DOS NPO Ortho class Post-op transportation Pre-op antibiotic Pre-surgical wash Sensory aids Sturdy shoes/comfortable clothes Do not bring valuables and remove jewelry Comment Check-in [id number]
--- NOTE | 2018-02-28 11:31 | PC.NURSE ---
Discharge Pt states she had increased pain after working with PT this AM, medicated with oxy. Pt states this did help her pain. PIV removed prior to d/c. D/c instructions provided to pt and her . Aware of f/u apt with MD. notified to contact MD for any additional questions or concerns. Will set up PT as instructed. Pt states she took all belongings with her. left in w/c with RN escort and to car.
== END 2018-02-28 11:25 | disposition home or self-care (01) | DRG 470 ==
PROVIDERS: Admitting Provider Orthopaedic Surgery; Family Provider Internal Medicine; PCP Internal Medicine; Visit Provider Orthopaedic Surgery
PROC: 0SR902Z Replacement of Right Hip Joint with Metal on Polyethylene Synthetic Substitute, Open Approach (ICD-10-PCS; CPT 27130; principal; 2018-02-27 07:45)
DX: M16.11 Unilateral primary osteoarthritis, right hip (principal); Z95.2 Presence of prosthetic heart valve; E78.5 Hyperlipidemia, unspecified
CPT/HCPCS: 36415; 73502; 76001; 85014; 85018; 97116; 97161; 97530; C1776; C9290; J0690; J1100; J2250; J2274; J2405; J2704; J3010; J3370

== ENCOUNTER → 2019-02-19 14:31 | Outpatient (ROUT) | payer MEDICARE, OTHER, SELFPAY ==
[2018-02-27 13:31] VITALS: BMI 28.9
[2019-02-19 14:59] LABS: Alanine Aminotransferase 31 IU/L (<35); Aspartate Aminotransferase 37 IU/L (14-36); BUN Creatinine Ratio 23.3 (6-22); Blood Urea Nitrogen 14 mg/dL (7-17); Calcium 9.7 mg/dL (8.4-10.2); Carbon Dioxide 30 mmol/L (22-32); Chloride 101 mmol/L (98-107); Cholesterol 199 mg/dL (140-199); Estimated Glomerular Filt Rate > 60.0 mL/min (>60); Glucose 92 mg/dL (80-110); HDL Cholesterol 68 mg/dL (40-60); HEMOLYSIS 17 (0-50); LDL Cholesterol Calculated 115 mg/dL (<100); Sodium 141 mmol/L (137-145); Triglycerides 81 mg/dL (35-150)
[2019-02-19 15:27] LABS: TSH w/ Reflex to FT4 3.54 uIU/mL (0.47-4.68)
== END ==
PROVIDERS: Family Provider Internal Medicine; PCP Internal Medicine; Visit Provider Internal Medicine
DX: Z13.1 Encounter for screening for diabetes mellitus (principal); E78.5 Hyperlipidemia, unspecified; E03.9 Hypothyroidism, unspecified
CPT/HCPCS: 80048; 80061; 84443; 84450; 84460

== ENCOUNTER → 2019-02-26 11:03 | Outpatient (CLI) | payer MEDICARE, OTHER, SELFPAY ==
[2018-02-27 13:31] VITALS: BMI 28.9
--- NOTE | 2019-02-26 | DI.MG.S_ITS ---
BILATERAL DIGITAL SCREENING MAMMOGRAM 3D/2D WITH CAD: 02/26/2019 CLINICAL: Routine screening. Comparison is made to exams dated: 11/08/2015 mammogram, 04/09/2014 mammogram - [facility], and 06/07/2004 mammogram - [facility]. The tissue of both breasts is heterogeneously dense. This may lower the sensitivity of mammography. Current study was also evaluated with a Computer Aided Detection (CAD) system. No significant masses, calcifications, or other findings are seen in either breast. There has been no significant interval change. IMPRESSION: NEGATIVE There is no mammographic evidence of malignancy. A 1 year screening mammogram is recommended. This exam was interpreted at Station ID: [id number]. NOTE: For mammograms, a report in lay terms will be sent to the patient. Approximately 15% of breast malignancies will not be visualized mammographically. In the management of a palpable breast mass, a negative mammogram must not discourage biopsy of a clinically suspicious lesion. Electronically Signed By: Anibal blackburn/amriama:02/26/2019 15:37:39 letter sent: Normal Exam ACR BI-RADS Category 1: Negative 3341F
== END ==
PROVIDERS: PCP Internal Medicine; Visit Provider Internal Medicine
DX: Z12.31 Encounter for screening mammogram for malignant neoplasm of breast (principal)
CPT/HCPCS: 77063; 77067

== ENCOUNTER → 2019-05-13 12:58 | Outpatient (CLI) | payer MEDICARE, OTHER, SELFPAY ==
[2018-02-27 13:31] VITALS: BMI 28.9
--- NOTE | 2019-05-13 | DI.MRI.S_ITS ---
PROCEDURE: MR ANKLE LT WO CON INDICATIONS: Posterior tibial tendinitis, left leg TECHNIQUE: Noncontrast sagittal T1 spin echo and T2 fast spin echo with fat saturation, axial proton density fast spin echo and T2 fast spin echo with fat saturation, coronal T1 spin echo and T2 fast spin echo with fat saturation through the ankle/hindfoot. COMPARISON: [facility], CR, XR ANKLE 3+ VIEWS LEFT, 03/26/2019, 15:16. FINDINGS: Image quality: Diagnostic. Bones and joints: No acute fracture, dislocation, or suspicious osseous lesion is identified involving the osseous structures of the midfoot or forefoot. The alignment of the ankle mortise is well-maintained. There is mild marrow edema identified along the periphery of the medial malleolus. There is slight marrow edema along the medial corner of the talar dome, which appears to be related to an overlying small defect of the hyaline articular cartilage. No displaced osteochondral defects of the tibial plafond toward the talar dome are evident. Mild marrow edema involving the medial aspect of the head/neck of the talus is present without an associated fracture. There are mild degenerative changes noted involving being medial tarsonavicular joint with degenerative cystic change evident involving the medial cuneiform. Mild marrow edema is noted along the medial border of the navicular. There is a posterior subtalar and talonavicular joint effusion, which are small in size. There is a plantar calcaneal spur. Medial structures: The deltoid ligament is somewhat heterogeneous and slightly thickened, probably representing scarring from previous partial thickness injury. The components of the spring ligament are intact. There is moderate thickening and diffuse increased signal involving the tibialis posterior tendon with a long segment longitudinal split tear extending from about the level of the medial malleolus to the level of the navicular. A moderate amount of fluid is contained within its corresponding tendon sheath. The flexor hallucis longus and flexor digitorum longus tendons are intact and within normal limits. However, small amount of fluid is contained within their corresponding tendon sheaths. The posterior tibial nerve is noted to be enlarged through the region of the tarsal tunnel. Lateral structures: The anterior and posterior distal tibiofibular ligaments are somewhat heterogeneous and irregular with increased signal noted involving the anterior distal tibiofibular ligament. No full-thickness tear is identified. The posterior talofibular ligament is not and clearly identified but probably intact. The calcaneofibular ligament is intact. There is mild increased signal about this ligament. The anterior talofibular ligament appears to be chronically torn. However, there is edema about this ligament. There is increased signal within the sinus tarsi with small ganglion cysts evident. There is prominent flattening of the peroneus brevis tendon along the posterior aspect of the lateral malleolus. A short segment longitudinal split tear is present it extends from just above the tip of the lateral malleolus to approximately the mid calcaneus. Increased signal and thickening of the peroneus longus tendon is present without significant hearing appreciated. This is more prominent as it passes under the cuboid. There is fluid contained within its corresponding tendon sheath. Anterior structures: The the tibialis anterior tendon is intact. The extensor hallucis longus tendon is also intact and within normal limits. There is slight prominence and increased signal involving the mid to distal margins of the extensor digitorum tendons, best appreciated overlying the region of the navicular with a small amount of fluid contained within their corresponding tendon sheaths. Posterior and plantar structures: Achilles tendon is intact. Medial and lateral bands of the plantar fascia are of normal thickness. Other: Subcutaneous edema is present about the ankle. No drainable or loculated fluid collections are evident. IMPRESSION: 1. Long segment longitudinal split tear and prominent tendinopathy of the tibialis posterior tendon with corresponding tenosynovitis. 2. Mild tenosynovitis involving the upper medial flexor tendons. 3. Short segment longitudinal split tear of the peroneus brevis tendon with corresponding tendinopathy. 4. Moderate peroneus longus tendinopathy with corresponding mild tenosynovitis. 5. Mild extensor digitorum tendinopathy with corresponding tenosynovitis. 6. 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 7. Probable partial-thickness tearing involving the anterior distal tibiofibular ligament and the posterior talofibular ligament. 8. Prominence of the posterior tibial nerve within the tarsal tunnel. Please correlate clinically to exclude tarsal tunnel syndrome. 9. Mild degenerative changes of the tibiotalar and medial tarsonavicular joints. 10. Mild marrow edema involving the periphery of the medial malleolus and the medial border of the talar neck and of the medial border of the navicular is likely reactive or related to bone contusion. There is no fracture. 11. Extensive subcutaneous edema about the ankle. Dictated by: Aaron Espinoza M.D. on 05/13/2019 at 16:23 Approved by: Aaron Espinoza M.D. on 05/13/2019 at 16:31
== END ==
PROVIDERS: PCP Internal Medicine; Visit Provider Podiatrist
DX: M76.822 Posterior tibial tendinitis, left leg (principal); M65.872 Other synovitis and tenosynovitis, left ankle and foot; S93.492A Sprain of other ligament of left ankle, initial encounter; R60.0 Localized edema
CPT/HCPCS: 73721

== ENCOUNTER → 2019-05-19 15:40 | Outpatient (ROUT) | payer MEDICARE, OTHER, SELFPAY ==
[2018-02-27 13:31] VITALS: BMI 28.9
[2019-05-19 17:06] LABS: TSH w/ Reflex to FT4 2.03 uIU/mL (0.47-4.68)
== END ==
PROVIDERS: PCP Internal Medicine; Visit Provider Internal Medicine
DX: E03.9 Hypothyroidism, unspecified (principal)
CPT/HCPCS: 84443

== ENCOUNTER → 2020-07-25 11:52 | Outpatient (CLI) | payer MEDICARE, OTHER, SELFPAY ==
[2018-02-27 13:31] VITALS: BMI 28.9
[2020-07-25 12:51] LABS: Alanine Aminotransferase 24 IU/L (<35); Albumin 4.4 g/dL (3.5-5.0); Albumin Globulin Ratio 1.5 (1.0-2.8); Alkaline Phosphatase 74 U/L (38-126); Aspartate Aminotransferase 30 IU/L (14-36); BUN Creatinine Ratio 14.9 (6-22); Bilirubin Total 0.3 mg/dL (0.2-1.3); Blood Urea Nitrogen 10 mg/dL (7-17); Calcium 10.1 mg/dL (8.4-10.2); Carbon Dioxide 28 mmol/L (22-32); Chloride 104 mmol/L (98-107); Cholesterol 170 mg/dL (140-199); Estimated Glomerular Filt Rate > 60.0 mL/min (>60); Glucose 99 mg/dL (80-110); HDL Cholesterol 66 mg/dL (40-60); HEMOLYSIS < 15 (0-50); LDL Cholesterol Calculated 86 mg/dL (<100); Sodium 139 mmol/L (137-145); Total Protein 7.4 g/dL (6.3-8.2); Triglycerides 88 mg/dL (35-150)
[2020-07-25 13:36] LABS: TSH w/ Reflex to FT4 1.59 uIU/mL (0.47-4.68)
== END ==
PROVIDERS: PCP Internal Medicine; Referring Provider Internal Medicine; Visit Provider Internal Medicine
DX: E03.9 Hypothyroidism, unspecified (principal); E78.00 Pure hypercholesterolemia, unspecified
CPT/HCPCS: 36415; 80053; 80061; 84443

== ENCOUNTER 2020-10-26 08:36 | Day surgery (SDC) | payer MEDICARE, OTHER, SELFPAY ==
[2018-02-27 13:31] VITALS: BMI 28.9
[2020-10-26] VITALS (7 sets, daily range): BP systolic 92–132; BP diastolic 50–78; PULSE 65–85; RESP 14–16; TEMP 36.4–36.8; O2SAT 95–100; BMI 26.1
[2020-10-26 09:08] LABS: COVID19 -Nasal RAPID Negative (Negative)
[2020-10-26] MEDS: SODIUM CHLORIDE 0.9% 1,000 ML 84 ML IV (09:57)
[2020-10-26] MEDS: AMPICILLIN 1,000 MG in SODIUM CHLORIDE 0.9% 100 ML 200 ML IV (10:58)
[2020-10-26] MEDS: fentaNYL 250 MCG/5 ML INJ IV (11:10)
[2020-10-26] MEDS: MIDAZOLAM 5 MG/5 ML VIAL IV (11:22)
--- NOTE | 2020-10-26 11:24 | P.OP.ENDO_ITS ---
Procedure & Clinicians Study performed: EGD Indications: History of severe esophagitis and dysphagia. Dysphagia improved but though not resolved. Procedure Notes Procedure in detail: After informed consent was obtained the patient was placed in left lateral decubitus position. The video upper scope was placed into the oropharynx and with the patient's help swallowed into the esophagus. The esophagus stomach and duodenum were carefully examined. On withdrawal, retroflexed view the GE junction was performed. The scope was removed. The patient tolerated procedure well. Blood loss none Complications none Sedation Total sedation time 12 minutes Versed 8 mg fentanyl 100 mg IV titration Findings 1. Completely healed esophagitis 2. [id number] stricturing at the GE junction. This was just smaller than the scope at about 36 Wallisian. The scope was used to dilate. 3. Stomach full of old food 4. Normal duodenal bulb and sweep With the patient having some much food in your stomach do not feel as if he should continue to dilated particularly since she has been difficult to sedate. I would suggest repeating her study with a liquid diet for 2-3 days and with the use of anesthesia. We can then dilated up to a more reasonable level.
--- NOTE | 2020-10-26 12:30 | SUR.PHASEII ---
Pt up and ambulating gait steady, dressed now and ready to go. Dcd in stable condition via wc without problems and with all belongings. Verbalizes understanding of all dc instructions
== END 2020-10-26 12:30 | disposition home or self-care (01) ==
PROVIDERS: PCP Internal Medicine; Referring Provider Internal Medicine Gastroenterology; Visit Provider Internal Medicine Gastroenterology
PROC: 0DJ08ZZ Inspection of Upper Intestinal Tract, Via Natural or Artificial Opening Endoscopic (ICD-10-PCS; CPT 43235; principal; 2020-10-26 10:30)
DX: R13.10 Dysphagia, unspecified (principal); K22.2 Esophageal obstruction; Z87.19 Personal history of other diseases of the digestive system; K21.9 Gastro-esophageal reflux disease without esophagitis; E03.9 Hypothyroidism, unspecified; Z20.822 Contact with and (suspected) exposure to COVID-19
CPT/HCPCS: 43235; 87635; J0290; J2250; J3010

== ENCOUNTER → 2020-11-07 13:27 | Outpatient (CLI) | payer MEDICARE, OTHER, SELFPAY ==
[2018-02-27 13:31] VITALS: BMI 28.9
[2020-11-07 15:54] LABS: COVID19 -Nasal RAPID Negative (Negative)
== END ==
PROVIDERS: PCP Internal Medicine; Visit Provider Physician Assistant
DX: Z01.812 Encounter for preprocedural laboratory examination (principal); Z20.822 Contact with and (suspected) exposure to COVID-19
CPT/HCPCS: 87635; C9803

== ENCOUNTER 2020-11-09 09:50 | Day surgery (SDC) | payer MEDICARE, OTHER, SELFPAY ==
[2018-02-27 13:31] VITALS: BMI 28.9
[2020-11-09] MEDS: SODIUM CHLORIDE 0.9% 1,000 ML 84 ML IV (10:20)
[2020-11-09 10:24] VITALS: BP 151/84; PULSE 76; RESP 18; TEMP 36.2; O2SAT 99; BMI 25.6
--- NOTE | 2020-11-09 11:08 | PM.HP.1 ---
History of Present Illness History of Present Illness Date Patient Seen: 11/09/20 Chief complaint: SDC Narrative: Known severe esophagitis with stricture need to check for healing and to possibly dilate. Dysphagia has virtually resolved. Patient History Medical History (Updated 05/19/20 @ 08:47 by [employer] Wi) Anemia Aortic stenosis Arthritis Bilateral cataracts Esophageal stricture Esophagitis GERD (gastroesophageal reflux disease) Heartburn Hiatal hernia History of migraine with aura Hyperlipidemia Hypothyroidism Lumbar degenerative disc disease Pain in right hip Palpitations Postmenopausal Psoriasis Pulmonary artery congenital abnormality Restless leg syndrome Tinnitus Urinary incontinence Surgical History (Updated 11/09/20 @ 10:22 by Melvin Carroll RN) H/O aortic valve replacement (~08/02/17) H/O cardiac catheterization History of ankle surgery History of esophagogastroduodenoscopy (EGD) Status post total replacement of right hip Family & Social History Social History: household members spouse Tobacco & Substance use: Smoking Status Never smoker alcohol intake current alcohol intake frequency 0-2 drinks per day Substance Use Type does not use,marijuana Meds Home Medications and Allergies Home Medications Medication Instructions Recorded Confirmed Type melatonin 5 mg tablet 10 mg PO HSP PRN #0 02/09/16 11/09/20 History atorvastatin 40 mg tablet 40 mg PO QAM #0 06/03/17 11/09/20 History ascorbic acid (vitamin C) 500 mg 500 mg PO DAILY 02/10/18 11/09/20 History tablet (Vitamin C) calcium carbonate 500 mg (1,250 1 tab PO BID 02/10/18 11/09/20 History mg)-vitamin D3 125 unit tablet (Calcium 500 + D (D3)) cyanocobalamin (vitamin B-12) 2,500 mcg PO DAILY 02/10/18 11/09/20 History 2,000 mcg tablet,extended release (Vitamin B-12 ER) levothyroxine 50 mcg tablet 50 mcg PO DAILY 02/10/18 11/09/20 History vitamin B complex (Super B-50 1 cap PO DAILY 02/10/18 11/09/20 History Complex) PreserVision Lutein 1 tab PO BID 11/09/20 11/09/20 History amoxicillin 500 mg capsule 500 mg PO DAILY 11/09/20 11/09/20 History aspirin 81 mg tablet,delayed 81 mg PO DAILY 11/09/20 11/09/20 History release omeprazole 40 mg capsule,delayed 40 mg PO DAILY 11/09/20 11/09/20 History release Allergies Allergy/AdvReac Type Severity Reaction Status Date / Time Sulfa (Sulfonamide Allergy Severe HIVES, Verified 02/27/18 13:40 Antibiotics) SWELLING [SULFA (SULFONAMIDE ANTIBIOTICS)] soy Allergy Intermediate Itching, Verified 02/10/18 14:33 rash omeprazole AdvReac Unknown Diarrhea Verified 02/10/18 15:04 Exam Vital Signs (past 8 hours): - 11/09/20 10:24 Temperature 97.1 F L Pulse Rate 76 Respiratory Rate 18 Blood Pressure 151/84 H Pulse Oximetry 99 Oxygen Delivery Method Room Air Oxygen Flow Rate 0 Narrative Exam Narrative: Oropharynx free of lesions Chest clear to auscultation percussion Cardiac exam reveals no S3 or murmur Assessment & Plan Assessment & Plan narrative: Dysphagia and severe esophagitis need to check for healing and possible dilation. Risks, benefits, alternatives have been explained. Patient is already taken her oral amoxicillin prophylactically due to her bicuspid aortic valve replacement
--- NOTE | 2020-11-09 11:09 | P.OP.ENDO_ITS ---
Operative Date/Time/Diagnoses Date of procedure: 11/09/20 Pre-op diagnosis: See indication and findings Procedure & Clinicians Study performed: EGD and possible dilation Indications: Dysphagia and history of severe esophagitis Surgeon: Yesenia Aguila Procedure Notes Procedure in detail: After informed consent was obtained the patient was placed in left lateral decubitus position. The video upper scope was placed into the oropharynx and with the patient's help swelled into the esophagus. The esophagus stomach and duodenum were carefully examined. On withdrawal retroflexed view the GE junction was performed. The scope was removed. The patient tolerated the procedure well. Blood loss none Complications none Sedation Total sedation time 15 minutes Versed 8 mg fentanyl 100 micro g IV titration Findings 1. Completely healed esophagitis 2. Moderately tight Schatzki's ring at the GE junction. This was just smaller than the scope which was able to ?pop? through into the stomach. On withdrawal this was dilated to 42 Vietnamese Savary. 3. Stomach full of old food. This was probably from the pyloric stenosis present. Pylorus would not admit the scope initially. The pylorus was dilated to 12 mm balloon using a 01/24/12 balloon. Subsequently the scope was able to be passed in the duodenum was found to be normal.. I think see under control down to omeprazole 40 mg just once a day. She will need further treatment however. This would include both dilating her esophagus to a larger size and at the same time treating her pylorus with Botox and dilating to a larger size. We will arrange this in another month or so.
[2020-11-09] MEDS: fentaNYL 250 MCG/5 ML INJ IV (11:46)
[2020-11-09] MEDS: MIDAZOLAM 5 MG/5 ML VIAL IV (11:58)
[2020-11-09 12:08] VITALS: BP 110/69; PULSE 78; RESP 16; TEMP 36.6; O2SAT 94
[2020-11-09 12:13] VITALS: BP 106/63; PULSE 75; RESP 14
[2020-11-09 12:34] VITALS: BP 117/72; PULSE 79; RESP 16; TEMP 36.2; O2SAT 98
[2020-11-09 12:49] VITALS: BP 114/60; PULSE 78; RESP 16; TEMP 36.7; O2SAT 97
== END 2020-11-09 12:51 | disposition home or self-care (01) ==
PROVIDERS: PCP Internal Medicine; Referring Provider Internal Medicine Gastroenterology; Visit Provider Internal Medicine Gastroenterology
PROC: 0DJ08ZZ Inspection of Upper Intestinal Tract, Via Natural or Artificial Opening Endoscopic (ICD-10-PCS; CPT 43235; principal; 2020-11-09 11:00)
DX: R13.10 Dysphagia, unspecified (principal); K22.2 Esophageal obstruction; E03.9 Hypothyroidism, unspecified; K21.9 Gastro-esophageal reflux disease without esophagitis
CPT/HCPCS: 43245; 43248; J2250; J3010

== ENCOUNTER → 2020-11-25 13:15 | Outpatient (CLI) | payer MEDICARE, OTHER, SELFPAY ==
[2018-02-27 13:31] VITALS: BMI 28.9
--- NOTE | 2020-11-25 | DI.MG.S_ITS ---
BILATERAL DIGITAL DIAGNOSTIC MAMMOGRAM 3D/2D: 11/25/2020 CLINICAL: RIGHT BREAST PAIN. Comparison is made to exams dated: 02/26/2019 mammogram, 11/08/2015 mammogram, and 04/09/2014 mammogram - [facility]. There are scattered fibroglandular elements in both breasts. No significant masses, calcifications, or other findings are seen in either breast. IMPRESSION: INCOMPLETE: NEEDS ADDITIONAL IMAGING EVALUATION There is no abnormality seen in the right breast to correspond with the area of clinical concern and pain in the inner aspect, however, ultrasound is recommended. An ultrasound is recommended for further evaluation and is scheduled to immediately follow this examination. This exam was interpreted at Station ID: [id number]. NOTE: For mammograms, a report in lay terms will be sent to the patient. Approximately 15% of breast malignancies will not be visualized mammographically. In the management of a palpable breast mass, a negative mammogram must not discourage biopsy of a clinically suspicious lesion. Electronically Signed By: Jeyson Sullivan M.D. aty/:11/25/2020 15:15:15 ACR BI-RADS Category 0: Incomplete 3340F
--- NOTE | 2020-11-25 | DI.US.S_ITS ---
ULTRASOUND OF RIGHT BREAST: 11/25/2020 CLINICAL: Focal right breast pain. Comparison is made to exams dated: 11/25/2020 mammogram, 02/26/2019 mammogram, 11/08/2015 mammogram, 04/09/2014 mammogram - [facility], 06/07/2004 mammogram, and 01/10/2000 mammogram - [facility]. Real-time ultrasound of the right breast was performed. Elizondo scale images of the real-time examination were reviewed. No significant abnormalities were seen sonographically in the right breast. IMPRESSION: NEGATIVE There is no sonographic evidence of malignancy. There is no abnormality seen in the right breast to correspond with the area of clinical concern and pain involving the inner aspect of the breast, however, recommend clinical follow up for persistent or worsening symptoms, or development of any clinically suspicious findings. A 1 year screening mammogram is recommended. Findings and recommendations were conveyed to the patient during today's evaluation. This exam was interpreted at Station ID: [id number]. Electronically Signed By: Jeyson Sullivan M.D. at/:11/25/2020 15:18:52 letter sent: Clinical Evaluation Ultrasound BI-RADS: 1 Negative
== END ==
PROVIDERS: PCP Internal Medicine; Referring Provider Internal Medicine; Visit Provider Internal Medicine
DX: N64.4 Mastodynia (principal); R92.2 Inconclusive mammogram
CPT/HCPCS: 76642; 77066; G0279

== ENCOUNTER → 2021-01-09 10:03 | Outpatient (CLI) | payer MEDICARE, OTHER, SELFPAY ==
[2018-02-27 13:31] VITALS: BMI 28.9
[2021-01-09 12:20] LABS: COVID19 -Nasal RAPID Negative (Negative)
== END ==
PROVIDERS: PCP Internal Medicine; Visit Provider Nurse Practitioner Family
DX: Z01.812 Encounter for preprocedural laboratory examination (principal); Z20.822 Contact with and (suspected) exposure to COVID-19
CPT/HCPCS: 87635; C9803

== ENCOUNTER 2021-01-11 11:52 | Day surgery (SDC) | payer MEDICARE, OTHER, SELFPAY ==
[2018-02-27 13:31] VITALS: BMI 28.9
[2021-01-11] VITALS (7 sets, daily range): BP systolic 115–150; BP diastolic 74–94; PULSE 70–98; RESP 12–20; TEMP 36.4–37.1; O2SAT 95–98; BMI 26.1
[2021-01-11] MEDS: ONABOTULINUMTOXINA 200 UNIT VIAL 100 UNIT INJ (13:34)
--- NOTE | 2021-01-11 13:50 | PM.OP.EGD ---
Operative Date/Time/Diagnoses Date of procedure: 01/11/21 Pre-op diagnosis: See indication and findings Procedure & Clinicians Study performed: EGD with Savary and balloon dilation, and Botox injection into the pylorus Indications: Poor gastric emptying at least in part from a very tight restricted pylorus, probably also causing GE reflux and distal esophageal narrowing. Need for further therapy Surgeon: Yesenia Aguila Procedure Notes Procedure in detail: After informed consent was obtained the patient was placed in left lateral decubitus position. The video upper scope was placed into the oropharynx and with the patient's help swelled into the esophagus. The esophagus stomach and duodenum were carefully examined. On withdrawal, retroflexed view the GE junction was performed. The scope was removed. The patient tolerated procedure well. Blood loss none Complications none Sedation mac Findings 1. Esophagus showing no signs of distal inflammation but there was a bit of a Schatzki's ring present. The scope could be passed through this area as it was dilated to 42 Bruneian last time. On withdrawal as the final maneuver with this area was dilated to 48 Bruneian Savary. There was no significant resistance. 2. Stomach still has a good deal of old food present but far less than before. At least 50% could be suctioned away leaving of semi solid remnants behind. 3. Pylorus appeared very tight though it had a very eccentric lumen. This probably is from the past therapy/dilation. The scope could barely be passed into it. Part of this was due to angulation. I decided to 1st dilate the area with a balloon dilator. Using a 12-15 multilevel balloon this was slowly inflated to the 15 mm level. Pylorus appeared very elongated muscular and tight. Good dilation was achieved with minimal residual blood. The scope could not be easily passed into the duodenum. 4. To assess further and allowing the pylorus to remain open Botox was injected 20 cc each in 4 quadrants. Ms. lam will go back on her regular diet and call us for follow-up in 2-4 weeks so we can have a telehealth visit and see how she is doing.
--- NOTE | 2021-01-11 14:53 | SUR.PHASEII ---
1435-Pt given all dc instructions and verbalizes understanding, up and ambulating gait steady, finished whole can of Dr Ayla kinsey by to speak with pt earlier, pt dressed now and ready to go. Pt dcd via wc in stable condition with all belongings and no complaints.
== END 2021-01-11 14:35 | disposition home or self-care (01) ==
PROVIDERS: PCP Internal Medicine; Referring Provider Internal Medicine Gastroenterology; Visit Provider Internal Medicine Gastroenterology
PROC: 0DJ08ZZ Inspection of Upper Intestinal Tract, Via Natural or Artificial Opening Endoscopic (ICD-10-PCS; CPT 43235; principal; 2021-01-11 13:00)
DX: K22.2 Esophageal obstruction (principal); K21.9 Gastro-esophageal reflux disease without esophagitis; K31.1 Adult hypertrophic pyloric stenosis; E03.9 Hypothyroidism, unspecified
CPT/HCPCS: 43245; 43248; 43236; J0585; J2704

== ENCOUNTER 2021-02-11 15:35 | Emergency (ER) | payer MEDICARE, OTHER, SELFPAY ==
[2018-02-27 13:31] VITALS: BMI 28.9
[2021-02-11] VITALS (12 sets, daily range): BP systolic 143–192; BP diastolic 66–90; PULSE 63–90; RESP 12–22; TEMP 36.6; O2SAT 97–100; BMI 26.4
--- NOTE | 2021-02-11 15:46 | DI.RAD.S_ITS ---
PROCEDURE: XR CHEST 1V INDICATIONS: chest pain TECHNIQUE: One view of the chest was acquired. COMPARISON: [facility], , CHEST 1 VIEW, 10/19/2014, 12:00. FINDINGS: Overlying EKG wires. Surgical changes and devices: Postsurgical changes of median sternotomy and aortic valve replacement. Lungs and pleura: Lungs are clear. No pleural effusions or pneumothorax. Mediastinum: Mediastinal contours appear normal. Heart size is normal. Bones and chest wall: No suspicious bony lesions. Overlying soft tissues appear unremarkable. IMPRESSION: No evidence of an acute cardiopulmonary abnormality. Postsurgical changes of aortic valve replacement. Dictated by: Jose Choi D.O. on 02/11/2021 at 15:00 Approved by: Jose Choi D.O. on 02/11/2021 at 15:01
--- NOTE | 2021-02-11 15:51 | ED_ITS ---
HPI - Arrhythmia/Palpitations General Chief Complaint: Arrhythmia/Palpitations Stated Complaint: aortic valve replacement, severe palpitation,dizzy Time Seen by Provider: 02/11/21 15:44 Source: patient Mode of arrival: Ambulatory History of Present Illness HPI narrative: The patient is about 4 years status post aortic valve replacement. She has no history of hypertension, or arrhythmia. She is anticoagulated. She has experienced palpitations for the past 4 days. She has loose bowel movements, she thinks associated with the use of omeprazole. She has a history of GERD, and esophageal stricture. She has undergone a Botox injection for the stricture. She has no fever, chills, cough or dyspnea. She has no abdominal pain. She has no nausea or emesis. Related Data Home Medications Medication Instructions Recorded Confirmed melatonin 5 mg tablet 10 mg PO HSP PRN #0 02/09/16 01/11/21 atorvastatin 40 mg tablet 40 mg PO QAM #0 06/03/17 01/11/21 ascorbic acid (vitamin C) 500 mg 500 mg PO DAILY 02/10/18 01/11/21 tablet (Vitamin C) calcium carbonate 500 mg (1,250 1 tab PO BID 02/10/18 01/11/21 mg)-vitamin D3 125 unit tablet (Calcium 500 + D (D3)) cyanocobalamin (vitamin B-12) 2,500 mcg PO DAILY 02/10/18 01/11/21 2,000 mcg tablet,extended release (Vitamin B-12 ER) levothyroxine 50 mcg tablet 50 mcg PO DAILY 02/10/18 01/11/21 vitamin B complex (Super B-50 1 cap PO DAILY 02/10/18 11/09/20 Complex) PreserVision Lutein 1 tab PO BID 11/09/20 01/11/21 aspirin 81 mg tablet,delayed 81 mg PO DAILY 11/09/20 01/11/21 release omeprazole 40 mg capsule,delayed 40 mg PO DAILY 11/09/20 01/11/21 release Allergies Allergy/AdvReac Type Severity Reaction Status Date / Time Sulfa (Sulfonamide Allergy Severe HIVES, Verified 02/11/21 15:47 Antibiotics) SWELLING [SULFA (SULFONAMIDE ANTIBIOTICS)] soy Allergy Intermediate Itching, Verified 02/11/21 15:47 rash omeprazole AdvReac Unknown Diarrhea Verified 02/11/21 15:47 Review of Systems Constitutional Constitutional: Denies body ache(s), Denies chills, Reports fatigue, Denies fever(s) and Denies headache(s) Eyes Comments: No visual changes ENT Ears, Nose, Mouth, and Throat: Denies dizziness and Denies headache(s) Cardiovascular Cardiovascular: Denies rapid heart rate, Denies edema, Reports irregular heart rhythm, Denies leg edema, Denies lightheadedness and Denies dyspnea Respiratory Respiratory: Denies dyspnea Gastrointestinal Gastrointestinal: Reports as per HPI Genitourinary Genitourinary: Denies dysuria Musculoskeletal Musculoskeletal: Denies back pain and Denies myalgias Integumentary/Breasts Skin/Breast: Denies lesions, Denies new lesions and Denies rash Neurologic Neurologic: Denies dizziness and Denies headache(s) Psychiatric Psychiatric: Reports anxiety Endocrine Endocrine: Reports fatigue Patient History Medical History Anemia Aortic stenosis Arthritis Bilateral cataracts Esophageal stricture Esophagitis GERD (gastroesophageal reflux disease) Heartburn Hiatal hernia History of migraine with aura Hyperlipidemia Hypothyroidism Lumbar degenerative disc disease Pain in right hip Palpitations Postmenopausal Psoriasis Pulmonary artery congenital abnormality Restless leg syndrome Tinnitus Urinary incontinence Surgical History H/O aortic valve replacement (~08/02/17) H/O cardiac catheterization History of ankle surgery History of esophagogastroduodenoscopy (EGD) Status post total replacement of right hip Social History household members: spouse Smoking Status: Never smoker alcohol intake: current Smoking Status: Never smoker alcohol intake frequency: 0-2 drinks per day Substance Use Type: does not use and marijuana Exam Initial Vital Signs Initial Vital Signs: Vital Signs Pulse Rate 87 02/11/21 15:39 Blood Pressure 192/90 H 02/11/21 15:39 Pulse Oximetry 98 02/11/21 15:39 Const General: cooperative, healthy appearing and well groomed [facility] Head: normal to inspection, normocephalic and atraumatic Mouth: oral mucosae normal Throat: posterior oropharynx normal Neck Neck: No JVD Chest Chest: normal inspection of the chest Resp Auscultation: clear to auscultation bilaterally Cardio Rate: regular rate Rhythm: regular rhythm Heart Sounds: S1 normal, S2 normal and murmur systolic mid and II/ GI Inspection: normal to inspection Palpation: soft and No mass Percussion: normal to percussion Auscultation: normal bowel sounds Back/Spine/Pelvis Back: No CVA tenderness Skin General: no rashes or lesions noted Neuro General: patient alert, patient awake, patient oriented x3 and no focal motor deficits Sensory Exam: no sensory deficits noted Course Course Course Narrative: Monitor reveals PVCs. PVCs are consistent with her complaints of palpitations. Her cardiac workup was otherwise benign. Her potassium was on the low edge, but not abnormally low. A low dose of potassium was given. This did not help. She has missed 2 anxiety. 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 She reports normal blood pressure, her initial blood pressure was in the 180s. She is the 150s when she departure. She is advised to follow-up on her blood pressure. Orders Ordered: ED Orders 02/11/21 15:45 Complete Blood Count AUTO DIFF Routine Comprehensive Metabolic Panel Stat Lipase Stat Magnesium Stat Prothrombin Time INR Stat Troponin & CK Cardiac Panel Stat 02/11/21 15:46 XR chest 1V Stat EKG-12 Lead Stat 02/11/21 15:50 COVID19 -Nasal swab/Pre-Proc Stat Discontinued Medications Potassium Chloride (Potassium Chloride 10 Meq Tab) 10 meq PO NOW ONE Stop: 02/11/21 16:22 Last Admin: 02/11/21 16:39 Dose: 10 meq Documented by: RUI Vital Signs Vital signs: Vital Signs - 8 hr 02/11/21 15:39 02/11/21 15:42 02/11/21 15:50 Temperature 98 F Pulse Rate 87 90 82 Respiratory Rate 17 14 Blood Pressure 192/90 H 192/90 H 168/70 H Pulse Oximetry 98 98 99 02/11/21 16:00 02/11/21 16:30 02/11/21 16:31 Temperature Pulse Rate 73 65 66 Respiratory Rate 19 13 14 Blood Pressure 173/75 H 157/69 H Pulse Oximetry 100 100 100 MDM - Arrhythmia/Palpitations Lab Data Result diagrams: 02/11/21 15:45 02/11/21 15:45 Labs: Lab Results 02/11/21 02/11/21 02/11/21 Range/Units 15:45 15:45 15:45 WBC 7.6 (4.5-11.0) X10^3/uL RBC 4.26 (4.0-5.2) X10^6/uL Hgb 13.6 (12.0-16.0) g/dL Hct 39.6 (36-46) % MCV 93.0 (80-100) fL MCH 31.8 (26-34) PG MCHC 34.2 (30-36) % RDW 12.8 (11.6-14.8) % Plt Count 258 (150-400) X10^3/uL Neut % (Auto) 53.4 (50-75) % Lymph % (Auto) 33.5 (25-40) % [place] % (Auto) 10.6 (3-14) % Eos % (Auto) 1.8 L (2-4) % Baso % (Auto) 0.7 (0-2) % Neut # (Auto) 4100 (3932-2238) /uL Lymph # (Auto) 2500 (1611-0102) /uL [place] # (Auto) 800 (0-900) /uL Eos # (Auto) 100 (0-450) /uL Baso # (Auto) 100 (0-100) /uL PT 11.6 (10.1-12.7) SECONDS INR 1.0 (0.9-1.3) Sodium 140 (137-145) mmol/L Potassium 3.5 (3.4-5.1) mmol/L Chloride 99 (98-107) mmol/L Carbon Dioxide 34 H (22-32) mmol/L BUN 12 (7-17) mg/dL Creatinine 0.75 (0.52-1.04) mg/dL Estimated GFR > 60.0 (>60) mL/min BUN/Creatinine Ratio 16.0 (6-22) Glucose 91 (80-110) mg/dL Calcium 10.8 H (8.4-10.2) mg/dL Magnesium 1.8 (1.6-2.3) mg/dL Total Bilirubin 0.5 (0.2-1.3) mg/dL AST 36 (14-36) IU/L ALT 28 (<35) IU/L Alkaline Phosphatase 84 (38-126) U/L Total Creatine Kinase 29 L (30-135) U/L CK-MB (CK-2) TNP CK-MB (CK-2) Rel Index TNP Troponin I < 0.012 (0.01-0.034) ng/mL Total Protein 8.4 H (6.3-8.2) g/dL Albumin 4.8 (3.5-5.0) g/dL Globulin 3.6 (1.7-4.1) g/dL Albumin/Globulin Ratio 1.3 (1.0-2.8) Lipase 179 (23-300) U/L SARS-CoV-2 (PCR) (Negative) 02/11/21 Range/Units 15:50 WBC (4.5-11.0) X10^3/uL RBC (4.0-5.2) X10^6/uL Hgb (12.0-16.0) g/dL Hct (36-46) % MCV (80-100) fL MCH (26-34) PG MCHC (30-36) % RDW (11.6-14.8) % Plt Count (150-400) X10^3/uL Neut % (Auto) (50-75) % Lymph % (Auto) (25-40) % [place] % (Auto) (3-14) % Eos % (Auto) (2-4) % Baso % (Auto) (0-2) % Neut # (Auto) (9826-5336) /uL Lymph # (Auto) (2621-2049) /uL [place] # (Auto) (0-900) /uL Eos # (Auto) (0-450) /uL Baso # (Auto) (0-100) /uL PT (10.1-12.7) SECONDS INR (0.9-1.3) Sodium (137-145) mmol/L Potassium (3.4-5.1) mmol/L Chloride (98-107) mmol/L Carbon Dioxide (22-32) mmol/L BUN (7-17) mg/dL Creatinine (0.52-1.04) mg/dL Estimated GFR (>60) mL/min BUN/Creatinine Ratio (6-22) Glucose (80-110) mg/dL Calcium (8.4-10.2) mg/dL Magnesium (1.6-2.3) mg/dL Total Bilirubin (0.2-1.3) mg/dL AST (14-36) IU/L ALT (<35) IU/L Alkaline Phosphatase (38-126) U/L Total Creatine Kinase (30-135) U/L CK-MB (CK-2) CK-MB (CK-2) Rel Index Troponin I (0.01-0.034) ng/mL Total Protein (6.3-8.2) g/dL Albumin (3.5-5.0) g/dL Globulin (1.7-4.1) g/dL Albumin/Globulin Ratio (1.0-2.8) Lipase (23-300) U/L SARS-CoV-2 (PCR) Negative (Negative) ECG Data Attestation: I personally reviewed and interpreted this ECG as follows: (Normal sinus rhythm at 79 beats per minute. LAD. Normal intervals. No acute ST T wave changes. Cardiac monitoring shows frequent PVCs.) Discharge Plan Departure Patient Disposition: Home Clinical Impression: Palpitations, Anxiety, Elevated blood pressure reading Instructions: Premature Ventricular Beats Activity Restrictions/Additional Instructions: Other than occasional skipped beats, your heart seems to be working quite well. Be sure you remain well hydrated at all times. Continue current medications. Follow-up with Dr. Azevedo if he this week, prior to your upcoming trip. Be sure your blood pressure is re-evaluated. Return here as needed Prescriptions: No Action melatonin 5 MG tablet 10 mg PO HSP PRN (Reason: Sleep) Qty: 0 RF: 0 atorvastatin 40 MG tablet 40 mg PO QAM Qty: 0 RF: 0 levothyroxine 50 mcg Tablet 50 mcg PO DAILY RF: 0 ascorbic acid (vitamin C) [Vitamin C] 500 mg Tablet 500 mg PO DAILY RF: 0 cyanocobalamin (vitamin B-12) [Vitamin B-12] 2,000 mcg Tablet Extended Release 2,500 mcg PO DAILY RF: 0 vitamin B complex [Super B-50 Complex] Capsule 1 cap PO DAILY RF: 0 calcium carbonate-vitamin D3 [Calcium 500 + D (D3)] 500 mg(1,250mg) -125 unit Tablet 1 tab PO BID RF: 0 omeprazole 40 mg capsule,delayed release(DR/EC) 40 mg PO DAILY RF: 0 aspirin 81 mg tablet,delayed release (DR/EC) 81 mg PO DAILY RF: 0 PreserVision Lutein 1 tab PO BID RF: 0 Referrals: Jennifer Darby MD [Primary Care Provider] -
--- NOTE | 2021-02-11 15:59 | PC.NURSE ---
pt states dizziness and a funny feeling in my heart that is intermittent but worsening over the past 4 day. pt denies pain SOB or additional complaints. EKG at the bedside complete, piv placed and DR at bedside.
[2021-02-11 16:08] LABS: Add Manual Diff / Slide Review NO; Basophils Absolute Auto 100 /uL (0-100); Basophils Percent Auto 0.7 % (0-2); Eosinophils Absolute Auto 100 /uL (0-450); Eosinophils Percent Auto 1.8 % (2-4); Hematocrit 39.6 % (36-46); Hemoglobin 13.6 g/dL (12.0-16.0); Lymphocytes Absolute Auto 2500 /uL (1100-4500); Lymphocytes Percent Auto 33.5 % (25-40); Mean Corpuscular HGB Conc 34.2 % (30-36); Mean Corpuscular Hemoglobin 31.8 PG (26-34); Monocytes Absolute Auto 800 /uL (0-900); Monocytes Percent Auto 10.6 % (3-14); Neutrophils Absolute Auto 4100 /uL (1500-7000); Neutrophils Percent Auto 53.4 % (50-75); Platelet Count 258 X10^3/uL (150-400); Red Blood Cell Count 4.26 X10^6/uL (4.0-5.2); Red Cell Distribution Width 12.8 % (11.6-14.8); White Blood Cell Count 7.6 X10^3/uL (4.5-11.0)
[2021-02-11 16:09] LABS: Prothrombin Time 11.6 SECONDS (10.1-12.7)
[2021-02-11 16:14] LABS: Alanine Aminotransferase 28 IU/L (<35); Albumin 4.8 g/dL (3.5-5.0); Albumin Globulin Ratio 1.3 (1.0-2.8); Alkaline Phosphatase 84 U/L (38-126); Aspartate Aminotransferase 36 IU/L (14-36); Bilirubin Total 0.5 mg/dL (0.2-1.3); Blood Urea Nitrogen 12 mg/dL (7-17); Calcium 10.8 mg/dL (8.4-10.2); Carbon Dioxide 34 mmol/L (22-32); Chloride 99 mmol/L (98-107); Creatine Kinase 29 U/L (30-135); Estimated Glomerular Filt Rate > 60.0 mL/min (>60); Globulin 3.6 g/dL (1.7-4.1); Glucose 91 mg/dL (80-110); HEMOLYSIS < 15 (0-50); Lipase 179 U/L (23-300); Magnesium 1.8 mg/dL (1.6-2.3); Potassium 3.5 mmol/L (3.4-5.1); Sodium 140 mmol/L (137-145); Total Protein 8.4 g/dL (6.3-8.2)
[2021-02-11 16:25] LABS: Troponin I < 0.012 ng/mL (0.01-0.034)
[2021-02-11 16:25] LABS: COVID19 -Nasal RAPID Negative (Negative)
[2021-02-11] MEDS: POTASSIUM CHLORIDE 10 MEQ TAB PO (16:39)
== END 2021-02-11 18:17 | disposition home or self-care (01) ==
PROVIDERS: Emergency Provider Emergency Medicine; PCP Internal Medicine
DX: R00.2 Palpitations (principal); F41.9 Anxiety disorder, unspecified; R03.0 Elevated blood-pressure reading, without diagnosis of hypertension; R07.9 Chest pain, unspecified; R42 Dizziness and giddiness; Z20.822 Contact with and (suspected) exposure to COVID-19
CPT/HCPCS: 36415; 71045; 80053; 82550; 83690; 83735; 84484; 85025; 85610; 87635; 93005; 99284; C9803

== ENCOUNTER → 2021-10-03 13:03 | Outpatient (CLI) | payer MEDICARE, OTHER, SELFPAY ==
[2018-02-27 13:31] VITALS: BMI 28.9
[2021-10-03 15:11] LABS: COVID19 -Nasal RAPID Negative (Negative)
== END ==
PROVIDERS: PCP Internal Medicine; Visit Provider Surgery
DX: Z20.822 Contact with and (suspected) exposure to COVID-19 (principal); Z01.812 Encounter for preprocedural laboratory examination
CPT/HCPCS: 87635; C9803

== ENCOUNTER 2021-10-04 12:20 | Day surgery (SDC) | payer MEDICARE, OTHER, SELFPAY ==
[2018-02-27 13:31] VITALS: BMI 28.9
[2021-10-04] VITALS (7 sets, daily range): BP systolic 109–151; BP diastolic 60–79; PULSE 60–91; RESP 15–18; TEMP 36.2–36.4; O2SAT 98–100; BMI 26.6
[2021-10-04] MEDS: LACTATED RINGERS 1,000 ML 84 ML IV (12:45)
--- NOTE | 2021-10-04 13:29 | PM.HP.1 ---
History of Present Illness History of Present Illness Chief complaint: Colonoscopy Patient History Medical History Anemia Aortic stenosis Arthritis Bilateral cataracts Esophageal stricture Esophagitis GERD (gastroesophageal reflux disease) Heartburn Hiatal hernia History of migraine with aura Hyperlipidemia Hypothyroidism Lumbar degenerative disc disease Pain in right hip Palpitations Postmenopausal Psoriasis Pulmonary artery congenital abnormality Restless leg syndrome Tinnitus Urinary incontinence Surgical History H/O aortic valve replacement (~08/02/17) H/O cardiac catheterization History of ankle surgery History of esophagogastroduodenoscopy (EGD) Status post total replacement of right hip Family & Social History Social History: household members spouse Tobacco & Substance use: Smoking Status Never smoker alcohol intake current alcohol intake frequency 0-2 drinks per day Substance Use Type marijuana Meds Home Medications and Allergies Home Medications Medication Instructions Recorded Confirmed Type melatonin 5 mg tablet 10 mg PO HSP PRN Sleep ##0 02/09/16 10/04/21 History atorvastatin 40 mg tablet 40 mg PO QAM ##0 06/03/17 10/04/21 History ascorbic acid (vitamin C) 500 mg 500 mg PO DAILY 02/10/18 10/04/21 History tablet (Vitamin C) calcium carbonate 500 mg-vitamin 1 tab PO BID 02/10/18 10/04/21 History D3 3.125 mcg (125 unit) tablet (Calcium) cyanocobalamin (vitamin B-12) 2,500 mcg PO DAILY 02/10/18 10/04/21 History 2,000 mcg tablet,extended release (Vitamin B-12 ER) levothyroxine 50 mcg tablet 50 mcg PO DAILY 02/10/18 10/04/21 History vitamin B complex (Super B-50 1 cap PO DAILY 02/10/18 10/04/21 History Complex capsule) PreserVision Lutein 1 tab PO BID 11/09/20 10/04/21 History aspirin 81 mg tablet,delayed 81 mg PO DAILY 11/09/20 10/04/21 History release omeprazole 40 mg capsule,delayed 40 mg PO DAILY 11/09/20 10/04/21 History release Allergies Allergy/AdvReac Type Severity Reaction Status Date / Time Sulfa (Sulfonamide Allergy Severe HIVES, Verified 10/04/21 12:45 Antibiotics) SWELLING [SULFA (SULFONAMIDE ANTIBIOTICS)] soy Allergy Intermediate Itching, Verified 10/04/21 12:45 rash Review of Systems Review of Systems Narrative: Negative Exam Vital Signs (past 8 hours): - 10/04/21 12:53 Temperature 97.6 F Pulse Rate 91 H Respiratory Rate 18 Blood Pressure 151/79 H Pulse Oximetry 99 Oxygen Delivery Method Room Air Oxygen Delivery Method Room Air Narrative Exam Narrative: Awake alert and oriented x3, pupils equal round reactive to light, oropharynx clear, heart regular rate and rhythm, lungs clear to auscultation bilaterally, abdomen nontender and nondistended, extremities without edema, no gross neurologic deficits noted Assessment & Plan Assessment & Plan narrative: Colon cancer screening for colonoscopy today Time Spent With Patient Critical Care time: I spent a total of [] minutes of critical care time on this patient's care today; this time is exclusive of procedural time.
--- NOTE | 2021-10-04 13:52 | PM.OP.COLON ---
Operative Date/Time/Diagnoses Date of procedure: 10/04/21 Procedure & Clinicians Study performed: Diagnostic colonoscopy Indications: Colon cancer screening. Last colonoscopy was 10 years ago. Procedure Notes Procedure in detail: Prior to the procedure, history and physical was performed, and patient medications and allergies were reviewed. Preprocedure nursing history and assessment was reviewed. Patient identification and proposed procedure were verified by the physician and nurse in the procedure room. The physical status of the patient was reassessed after the procedure. After informed consent was obtained including risks, benefits, and alternatives, the scope was passed under direct vision. Throughout the procedure, the patient's blood pressure, pulse, and oxygen saturations were monitored continuously. The colonoscope was introduced through the anus and advanced to the cecum as identified by the appendiceal orifice and ileocecal valve. The patient tolerated the procedure well. Bowel prep was deemed adequate to detect polyps greater than 5 mm. Perianal and digital rectal examinations were unremarkable. Retroflexion in the rectum revealed grade 2 internal hemorrhoids Multiple small and medium mouth diverticula were noted in the sigmoid and descending colon The colon was otherwise normal appearing Complications: other (EBL 0. No complications) Impression: Internal hemorrhoids Left-sided colonic diverticulosis No specimens taken Post-procedure Plan for aftercare: No recommendation for additional screening colonoscopies due to age Resume home medications High fiber diet Patient has a contact number available for emergencies. The signs and symptoms of potential delayed complications were discussed with the patient. Return to normal activities tomorrow. Written discharge instructions were provided to the patient. Discharge home with escort
== END 2021-10-04 14:30 | disposition home or self-care (01) ==
PROVIDERS: PCP Internal Medicine; Referring Provider Internal Medicine; Visit Provider Internal Medicine
PROC: 0DJD8ZZ Inspection of Lower Intestinal Tract, Via Natural or Artificial Opening Endoscopic (ICD-10-PCS; CPT 45378; principal; 2021-10-04 13:30)
DX: Z12.11 Encounter for screening for malignant neoplasm of colon (principal); K57.30 Diverticulosis of large intestine without perforation or abscess without bleeding; K64.1 Second degree hemorrhoids; K21.9 Gastro-esophageal reflux disease without esophagitis; K31.1 Adult hypertrophic pyloric stenosis; Q23.1 Congenital insufficiency of aortic valve; E03.9 Hypothyroidism, unspecified
CPT/HCPCS: G0121; J2704

== ENCOUNTER 2022-06-04 10:26 | Emergency (ER) | payer MEDICARE, OTHER, SELFPAY ==
[2018-02-27 13:31] VITALS: BMI 28.9
[2022-06-04] VITALS (9 sets, daily range): BP systolic 128–165; BP diastolic 60–80; PULSE 66–85; RESP 13–16; TEMP 36.2; O2SAT 97–100; BMI 29.4
--- NOTE | 2022-06-04 10:39 | DI.RAD.S_ITS ---
PROCEDURE: XR CHEST 2V INDICATIONS: SOB TECHNIQUE: 2 views of the chest were acquired. COMPARISON: None. FINDINGS: Surgical changes and devices: Median sternotomy changes and aortic valvuloplasty. Lungs and pleura: Lungs are clear. No pleural effusions or pneumothorax. Mediastinum: Mediastinal contours are normal. Heart size is normal. Bones and chest wall: No suspicious bony abnormalities. Soft tissues appear unremarkable. IMPRESSION: No acute cardiopulmonary process demonstrated radiographically. Dictated by: Eddi Noel M.D. on 06/04/2022 at 11:10 Approved by: Eddi Noel M.D. on 06/04/2022 at 11:13
--- NOTE | 2022-06-04 10:46 | ED.GENADULT ---
HPI - General Adult General Chief complaint: Chest Pain Stated complaint: unusual heart beat,pressure in chest 2 days ago Time Seen by Provider: 06/04/22 10:38 Source: patient Mode of arrival: Ambulatory History of Present Illness HPI narrative: 76-year-old female nonsmoker with history of hyperlipidemia and prior aortic valve replacement presents to the emergency department with a chief complaint of an episode of elevated heart rate in the 170s 2 days ago with associated dizziness, weakness and lightheadedness as well as shortness of breath. She has no ongoing symptoms and has had no recurrences. She denies any change in medications or diet. She denies nausea, vomiting or diarrhea. She denies recent travel, injury, trauma, history of blood clot. Related Data Home Medications Medication Instructions Recorded Confirmed melatonin 5 mg tablet 10 mg PO HSP PRN Sleep ##0 02/09/16 10/04/21 atorvastatin 40 mg tablet 40 mg PO QAM ##0 06/03/17 10/04/21 ascorbic acid (vitamin C) 500 mg 500 mg PO DAILY 02/10/18 10/04/21 tablet (Vitamin C) calcium carbonate 500 mg-vitamin 1 tab PO BID 02/10/18 10/04/21 D3 3.125 mcg (125 unit) tablet (Calcium) cyanocobalamin (vitamin B-12) 2,500 mcg PO DAILY 02/10/18 10/04/21 2,000 mcg tablet,extended release (Vitamin B-12 ER) levothyroxine 50 mcg tablet 50 mcg PO DAILY 02/10/18 10/04/21 vitamin B complex (Super B-50 1 cap PO DAILY 02/10/18 10/04/21 Complex capsule) PreserVision Lutein 1 tab PO BID 11/09/20 10/04/21 aspirin 81 mg tablet,delayed 81 mg PO DAILY 11/09/20 10/04/21 release omeprazole 40 mg capsule,delayed 40 mg PO DAILY 11/09/20 10/04/21 release Previous Rx's Medication Instructions Recorded amoxicillin 500 mg tablet 500 mg PO BID #14 tabs 06/04/22 Allergies Allergy/AdvReac Type Severity Reaction Status Date / Time Sulfa (Sulfonamide Allergy Severe HIVES, Verified 06/04/22 10:45 Antibiotics) SWELLING [SULFA (SULFONAMIDE ANTIBIOTICS)] soy Allergy Intermediate Itching, Verified 06/04/22 10:45 rash Review of Systems Review of Systems Narrative: GENERAL: Denies chills, fatigue, malaise, fever, sweats. HEENT: Denies sinus pain, ear pain, sore throat, difficulty swallowing, dizziness. RESPIRATORY: See HPI CARDIOVASCULAR: See HPI GASTROINTESTINAL: Denies nausea, vomiting, abdominal pain, diarrhea, constipation, melena. : Denies dysuria, frequency, incontinence, hematuria, urinary retention. MUSCULOSKELETAL: denies weakness, joint pain, or bony pain SKIN: Denies rash, skin lesions, or other NEUROLOGIC: Denies weakness, headache, numbness, change in speech, confusion, seizures, incoordination. PSYCHIATRIC: No concerning psychosocial issues. 12 point review of systems is negative except for those stated above Patient History Medical History Anemia Aortic stenosis Arthritis Bilateral cataracts Esophageal stricture Esophagitis GERD (gastroesophageal reflux disease) Heartburn Hiatal hernia History of migraine with aura Hyperlipidemia Hypothyroidism Lumbar degenerative disc disease Pain in right hip Palpitations Postmenopausal Psoriasis Pulmonary artery congenital abnormality Restless leg syndrome Tinnitus Urinary incontinence Surgical History H/O aortic valve replacement (~08/02/17) H/O cardiac catheterization History of ankle surgery History of esophagogastroduodenoscopy (EGD) Status post total replacement of right hip Social History household members: spouse Smoking Status: Never smoker alcohol intake: current Smoking Status: Never smoker alcohol intake frequency: 0-2 drinks per day Substance Use Type: marijuana Exam Narrative Exam Narrative: GENERAL: [76] year old patient appears stated age. Well-developed patient, in mild distress. HEAD: Atraumatic. Normocephalic. EYES: Pupils equal round and reactive. Extraocular motions intact. No scleral icterus. No injection or drainage. ENT: Nose without bleeding, purulent drainage. Throat without erythema, tonsillar hypertrophy or exudate. Airway patent. NECK: Trachea midline. Non tender CARDIOVASCULAR: Regular rate and rhythm without murmurs, gallops, or rubs. RESPIRATORY: Clear to auscultation. Breath sounds equal bilaterally. No wheezes, rales, or rhonchi. GASTROINTESTINAL: Abdomen soft, non-tender, nondistended. EXTREMITIES: No edema or joint tenderness. BACK: Nontender without deformity or crepitance. No flank tenderness. NEURO: AOx3. SKIN: No rash or erythema of visible areas Initial Vital Signs Initial Vital Signs: Vital Signs Temperature 97.1 F L 06/04/22 10:35 Pulse Rate 81 06/04/22 10:35 Respiratory Rate 14 06/04/22 10:35 Blood Pressure 165/80 H 06/04/22 10:35 Pulse Oximetry 99 06/04/22 10:35 Oxygen Delivery Method 06/04/22 10:35 Course Orders Ordered: ED Orders 06/04/22 10:39 XR chest 2V Stat EKG-12 Lead Stat 06/04/22 10:52 Complete Blood Count AUTO DIFF Stat Comprehensive Metabolic Panel Stat MAG [Magnesium] Stat NT-proBNP (BNP-Adult 18+) Stat Prothrombin Time INR Stat TSH w/ Reflex to FT4 Stat Troponin & CK Cardiac Panel Stat Vital Signs Vital signs: Vital Signs - 8 hr 06/04/22 10:35 Temperature 97.1 F L Pulse Rate 81 Respiratory Rate 14 Blood Pressure 165/80 H Pulse Oximetry 99 Oxygen Delivery Method Room Air Medical Decision Making Lab Data 06/04/22 10:52 06/04/22 10:52 Labs: Lab Results 06/04/22 06/04/22 06/04/22 Range/Units 10:52 10:52 10:52 WBC 4.8 (4.5-11.0) X10^3/uL RBC 3.95 L (4.0-5.2) X10^6/uL Hgb 12.6 (12.0-16.0) g/dL Hct 36.4 (36-46) % MCV 92.1 (80-100) fL MCH 32.0 (26-34) PG MCHC 34.8 (30-36) % RDW 12.8 (11.6-14.8) % Plt Count 200 (150-400) X10^3/uL Neut % (Auto) 53.9 (50-75) % Lymph % (Auto) 32.7 (25-40) % [place] % (Auto) 10.2 (3-14) % Eos % (Auto) 2.2 (2-4) % Baso % (Auto) 1.0 (0-2) % Neut # (Auto) 2600 (9940-2313) /uL Lymph # (Auto) 1600 (6025-6848) /uL [place] # (Auto) 500 (0-900) /uL Eos # (Auto) 100 (0-450) /uL Baso # (Auto) 0 (0-100) /uL PT 11.8 (10.1-12.7) SECONDS INR 1.0 (0.9-1.3) Sodium 138 (137-145) mmol/L Potassium 4.1 (3.4-5.1) mmol/L Chloride 102 (98-107) mmol/L Carbon Dioxide 28 (22-32) mmol/L BUN 15 (7-17) mg/dL Creatinine 0.69 (0.52-1.04) mg/dL Estimated GFR > 60 (>60) mL/min BUN/Creatinine Ratio 21.7 (6-22) Glucose 112 H (80-110) mg/dL Calcium 9.2 (8.4-10.2) mg/dL Magnesium (1.6-2.3) mg/dL Total Bilirubin 0.4 (0.2-1.3) mg/dL AST 29 (14-36) IU/L ALT 25 (<35) IU/L Alkaline Phosphatase 81 (38-126) U/L Total Creatine Kinase 34 (30-135) U/L CK-MB (CK-2) TNP CK-MB (CK-2) Rel Index TNP Troponin I < 0.012 (0.01-0.034) ng/mL NT-Pro-B Natriuret Pep 73 (<125) pg/mL Total Protein 7.3 (6.3-8.2) g/dL Albumin 4.3 (3.5-5.0) g/dL Globulin 3.0 (1.7-4.1) g/dL Albumin/Globulin Ratio 1.4 (1.0-2.8) TSH 06/04/22 06/04/22 06/04/22 Range/Units 10:52 10:52 10:52 WBC (4.5-11.0) X10^3/uL RBC (4.0-5.2) X10^6/uL Hgb (12.0-16.0) g/dL Hct (36-46) % MCV (80-100) fL MCH (26-34) PG MCHC (30-36) % RDW (11.6-14.8) % Plt Count (150-400) X10^3/uL Neut % (Auto) (50-75) % Lymph % (Auto) (25-40) % [place] % (Auto) (3-14) % Eos % (Auto) (2-4) % Baso % (Auto) (0-2) % Neut # (Auto) (6874-6864) /uL Lymph # (Auto) (4554-0820) /uL [place] # (Auto) (0-900) /uL Eos # (Auto) (0-450) /uL Baso # (Auto) (0-100) /uL PT (10.1-12.7) SECONDS INR (0.9-1.3) Sodium (137-145) mmol/L Potassium (3.4-5.1) mmol/L Chloride (98-107) mmol/L Carbon Dioxide (22-32) mmol/L BUN (7-17) mg/dL Creatinine (0.52-1.04) mg/dL Estimated GFR (>60) mL/min BUN/Creatinine Ratio (6-22) Glucose (80-110) mg/dL Calcium (8.4-10.2) mg/dL Magnesium 1.8 (1.6-2.3) mg/dL Total Bilirubin (0.2-1.3) mg/dL AST (14-36) IU/L ALT (<35) IU/L Alkaline Phosphatase (38-126) U/L Total Creatine Kinase (30-135) U/L CK-MB (CK-2) CK-MB (CK-2) Rel Index Troponin I (0.01-0.034) ng/mL NT-Pro-B Natriuret Pep (<125) pg/mL Total Protein (6.3-8.2) g/dL Albumin (3.5-5.0) g/dL Globulin (1.7-4.1) g/dL Albumin/Globulin Ratio (1.0-2.8) TSH Cancelled 3.37 MDM Narrative Medical decision making narrative: CC: 76-year-old female with brief episode of elevated heart rate with associated symptoms such as dizziness, weakness, lightheadedness and shortness of breath Complicating co-morbidities: Age, prior aortic valve replacement Data collected from: Patient Medical records reviewed: Prior notes and EMR have been evaluated Differential considered, but not limited to: SVT, AFib, electrolyte abnormality, versus other Exam documented above, pertinent findings include: Heart rate regular rhythm and rate, no increased work of breathing, well-perfused resting comfortably Lab Test results independently reviewed as above. Pertinent findings: No significant abnormalities that would require a specific or immediate intervention Independently reviewed EKG as above Imaging studies independently reviewed: No acute process Re-evaluations: Patient asymptomatic for duration visit Discussion: Patient had a brief episode of a tachyarrhythmia with typical associated symptoms and no recurrence. No change in diet or medications, no ongoing symptoms. Very reassuring history and physical exam, no abnormal labs, no abnormal findings on EKG or cardiac monitoring. Gave patient extensive reassurance, lengthy discussion about return precautions and importance of follow-up, but likely any equipment monitor phototypesetting via Holter or ZIO patch Disposition: see below, along with detailed discharge instructions that have been reviewed with patient as well as indications for ED re-evaluation and additional outpatient follow up Discharge Plan Departure Patient Disposition: Home Clinical Impression: Atypical chest pain, Heart palpitations, Pain, dental Instructions: DI for Arrhythmias Activity Restrictions/Additional Instructions: *You have been diagnosed with [abnormal heart rhythm. As we discussed year EKG, lab work and physical exam is very reassuring. There is no evidence of heart attack or electrolyte abnormality that would require specific intervention.] *What to do: *Please continue to take your regular medications as directed. [x ] New medication prescriptions sent to your pharmacy: [facility] ] [ ] New medication written as a paper prescription [ ] No new medications given *Please follow up with your primary care provider in 2-3 days, call for an appointment. Let them know you were seen in the Emergency Department and that we ask that you be seen in follow up. We will electronically transmit a record of today's note if your PCP is in our system *If you do not have a primary care provider please contact the [facility] Resource line at [phone]. They will ask some questions about your medical history and help get you set up with a doctor in the community. *Return to Emergency Department if you should have any new, worsening or concerning symptoms, such as [fever greater than 101 F, shaking chills, worsening pain, persistent vomiting or other bothersome symptoms] Prescriptions: New amoxicillin 500 mg tablet 500 mg PO BID Qty: 14 0RF No Action melatonin 5 MG tablet 10 mg PO HSP PRN (Reason: Sleep) Qty: 0 atorvastatin 40 MG tablet 40 mg PO QAM Qty: 0 levothyroxine 50 mcg Tablet 50 mcg PO DAILY ascorbic acid (vitamin C) [Vitamin C] 500 mg Tablet 500 mg PO DAILY cyanocobalamin (vitamin B-12) [Vitamin B-12] 2,000 mcg Tablet Extended Release 2,500 mcg PO DAILY vitamin B complex [Super B-50 Complex] Capsule 1 cap PO DAILY calcium carbonate-vitamin D3 [Calcium 500 + D (D3)] 500 mg(1,250mg) -125 unit Tablet 1 tab PO BID omeprazole 40 mg capsule,delayed release(DR/EC) 40 mg PO DAILY aspirin 81 mg tablet,delayed release (DR/EC) 81 mg PO DAILY PreserVision Lutein 1 tab PO BID Referrals: Jennifer Darby MD [Primary Care Provider] - Stand Alone Forms: Patient Portal/API
[2022-06-04 11:08] LABS: Add Manual Diff / Slide Review NO; Basophils Absolute Auto 0 /uL (0-100); Eosinophils Absolute Auto 100 /uL (0-450); Eosinophils Percent Auto 2.2 % (2-4); Hematocrit 36.4 % (36-46); Hemoglobin 12.6 g/dL (12.0-16.0); Lymphocytes Absolute Auto 1600 /uL (1100-4500); Lymphocytes Percent Auto 32.7 % (25-40); Mean Corpuscular HGB Conc 34.8 % (30-36); Mean Corpuscular Volume 92.1 fL (80-100); Monocytes Absolute Auto 500 /uL (0-900); Monocytes Percent Auto 10.2 % (3-14); Neutrophils Absolute Auto 2600 /uL (1500-7000); Neutrophils Percent Auto 53.9 % (50-75); Platelet Count 200 X10^3/uL (150-400); Red Blood Cell Count 3.95 X10^6/uL (4.0-5.2); Red Cell Distribution Width 12.8 % (11.6-14.8); White Blood Cell Count 4.8 X10^3/uL (4.5-11.0)
[2022-06-04 11:15] LABS: Prothrombin Time 11.8 SECONDS (10.1-12.7)
[2022-06-04 11:19] LABS: Magnesium 1.8 mg/dL (1.6-2.3)
[2022-06-04 11:21] LABS: Alanine Aminotransferase 25 IU/L (<35); Albumin 4.3 g/dL (3.5-5.0); Albumin Globulin Ratio 1.4 (1.0-2.8); Alkaline Phosphatase 81 U/L (38-126); Aspartate Aminotransferase 29 IU/L (14-36); BUN Creatinine Ratio 21.7 (6-22); Bilirubin Total 0.4 mg/dL (0.2-1.3); Blood Urea Nitrogen 15 mg/dL (7-17); Calcium 9.2 mg/dL (8.4-10.2); Carbon Dioxide 28 mmol/L (22-32); Chloride 102 mmol/L (98-107); Creatine Kinase 34 U/L (30-135); Estimated Glomerular Filt Rate > 60 mL/min (>60); Glucose 112 mg/dL (80-110); HEMOLYSIS < 15 (0-50); Potassium 4.1 mmol/L (3.4-5.1); Sodium 138 mmol/L (137-145); Total Protein 7.3 g/dL (6.3-8.2)
[2022-06-04 11:32] LABS: NT-proBNP (BNP-Adult 18+) 73 pg/mL (<125); Troponin I < 0.012 ng/mL (0.01-0.034)
[2022-06-04 12:17] LABS: TSH w/ Reflex to FT4 3.37 uIU/mL (0.47-4.68)
== END 2022-06-04 12:15 | disposition home or self-care (01) ==
PROVIDERS: Emergency Provider Emergency Medicine; PCP Internal Medicine
DX: R07.89 Other chest pain (principal); R00.2 Palpitations; K08.89 Other specified disorders of teeth and supporting structures; Z95.2 Presence of prosthetic heart valve
CPT/HCPCS: 36415; 71046; 80053; 82550; 83735; 83880; 84443; 84484; 85025; 85610; 93005; 99284

== ENCOUNTER → 2022-12-27 15:03 | Outpatient (CLI) | payer MEDICARE, OTHER, SELFPAY ==
[2018-02-27 13:31] VITALS: BMI 28.9
--- NOTE | 2022-12-27 | DI.MG.S_ITS ---
BILATERAL DIGITAL SCREENING MAMMOGRAM 3D/2D WITH CAD: 12/27/2022 CLINICAL: Routine screening. Comparison is made to exams dated: 11/25/2020 mammogram, 02/26/2019 mammogram, and 11/08/2015 mammogram - [facility]. There are scattered areas of fibroglandular density in both breasts (category b / 25%-50% glandular tissue). Current study was also evaluated with a Computer Aided Detection (CAD) system. No significant masses, calcifications, or other findings are seen in either breast. There has been no significant interval change. IMPRESSION: NEGATIVE There is no mammographic evidence of malignancy. A 1 year screening mammogram is recommended. Based on the Tyrer Cuzick model (a risk assessment model) the patient's lifetime risk is 4.5% and her 10 year risk is 4.5%. According to the ACR, ACS, and NCCN guidelines, an annual breast MRI exam along with mammogram is recommended if the patient's lifetime risk is 20% or greater. This exam was interpreted at Station ID: [id number]. NOTE: For mammograms, a report in lay terms will be sent to the patient. Approximately 15% of breast malignancies will not be visualized mammographically. In the management of a palpable breast mass, a negative mammogram must not discourage biopsy of a clinically suspicious lesion. Electronically Signed By: Jeyson [email or web address]/mariama:12/28/2022 14:16:15 letter sent: Normal Exam ACR BI-RADS Category 1: Negative [id number]
--- NOTE | 2022-12-27 | DI.RAD.S_ITS ---
Bone Density Report Name: IVAN DOWNING Age: 77 Sex: Female Ethnicity: White Date of : 1945 Indication: osteopenia; Referring Provider: PADMINI GILL Study: Bone densitometry was performed. Exam Date: December 27, 2022 Accession number: [id number] Bone Density: Region BMD T-score Z-score Classification AP Spine(L1-L4) 1.028 -0.2 2.2 Normal Femoral Neck (Left) 0.620 -2.1 0.0 Osteopenia Total Hip (Left) 0.737 -1.7 0.1 Osteopenia Total Forearm (Left) 0.479 -1.8 0.6 Osteopenia 1/3 Forearm (Left) 0.587 -1.8 0.8 Osteopenia UD Forearm (Left) 0.368 -1.3 0.6 Osteopenia World Health Organization criteria for BMD impression classify patients as: Normal (T-score at or above -1.0), Osteopenia (T-score between -1.0 and -2.5), or Osteoporosis (T-score at or below -2.5). 10-year Fracture Risk(1): Major Osteoporotic Fracture 13% Hip Fracture 3.4% Reported Risk Factors: [place] (), Neck BMD=0.620, BMI=29.1 (1) FRAX(R) Version 3.08. Fracture probability calculated for an untreated patient. Fracture probability may be lower if the patient has received treatment. Previous Exams: -- Region Exam Age BMD T-score BMD Change BMD Change Date g/cm2 vs Baseline vs Previous -- AP Spine (L1-L4) 12/27/2022 77 1.028 -0.2 -0.055 (-5.1%)# -0.055 (-5.1%)# 09/11/2017 72 1.084 0.3 Total Hip(Left) 12/27/2022 77 0.737 -1.7 -0.033 (-4.3%)# -0.033 (-4.3%)# 09/11/2017 72 0.770 -1.4 -- *Denotes significance at 95% confidence level, LSC for AP Spine = 0.022 g/cm2, LSC for Total Hip = 0.027 g/cm2 # Denotes dissimilar scan types or analysis methods Impression: The patient has low bone mass, based on the Left Femoral Neck T-score. The patient has an estimated ten-year risk of hip fracture of 3.4% and an estimated ten-year risk of major fracture of 13%, based on the WHO FRAX algorithm. No significant bone loss was observed. Discussion: BONE DENSITY IS LOW AT ONE OR MORE SKELETAL SITES. THE PATIENT'S BMD AND CLINICAL RISK FACTORS CONTRIBUTE TO THIS PATIENT'S INCREASED RISK OF FRACTURE. This patient's lowest T-score is low at one or more skeletal sites. It meets the World Health Organization's (WHO) criteria for low bone mass (T-score between -1.0 and -2.5). The patient's 10-year risk of hip fracture as calculated by FRAX exceeds the threshold where pharmacological therapy is recommended by the National Osteoporosis Foundation (NOF). However, all treatment decisions require clinical judgment and consideration of individual patient factors, including patient preferences, comorbidities, previous drug use, risk factors not captured in the FRAX model (e.g., frailty, falls, vitamin D deficiency, increased bone turnover, interval significant decline in bone density) and possible under or overestimation of fracture risk by FRAX. The patient should follow a healthful lifestyle (good nutrition with adequate calcium and vitamin D, and appropriate weight-bearing exercise). Follow-Up: Consider a repeat BMD and Vertebral Fracture Assessment (VFA) exam in 2 years or sooner if medically necessary, to reassess this patient's status. Reported by: MARILU HURT M.D. on 12/27/2022 3:33:00 PM.
== END ==
PROVIDERS: PCP Internal Medicine; Referring Provider Internal Medicine; Visit Provider Internal Medicine
DX: Z12.31 Encounter for screening mammogram for malignant neoplasm of breast (principal); M85.852 Other specified disorders of bone density and structure, left thigh; Z78.0 Asymptomatic menopausal state
CPT/HCPCS: 77063; 77067; 77080

== ENCOUNTER → 2023-09-16 12:34 | Outpatient (CLI) | payer MEDICARE, OTHER, SELFPAY ==
[2018-02-27 13:31] VITALS: BMI 28.9
--- NOTE | 2023-09-16 12:35 | DI.RAD.S_ITS ---
PROCEDURE: FL BARIUM SWALLOW INDICATIONS: Dysphagia COMPARISON: None. FINDINGS: Function: There is mostly normal esophageal peristalsis with occasional episodes of tertiary contractions/esophageal spasms. No elicited gastroesophageal reflux. There is abnormal transit of a calibrated barium tablet. The barium tablet did not pass beyond the level of the distal esophagus near the gastroesophageal junction. Multiple attempts to pass the tablet using both water and thin barium. The tablet was still visible near the GE junction at the end of the study. Morphology: Air-contrast images demonstrate normal mucosal morphology. Single contrast views show no extrinsic mass effects, or diverticula. There is a hiatal hernia. Limited images of the stomach demonstrate normal appearance. IMPRESSION: 1. Abnormal barium swallow with failure to pass standard barium tablet beyond the level of the distal esophagus/gastroesophageal junction. 2. Occasional episodes of tertiary contractions/esophageal spasms. 3. Small hiatal hernia. Dictated by: Jeyson Sullivan M.D. on 09/16/2023 at 18:02 Approved by: Jeyson Sullivan M.D. on 09/16/2023 at 18:06
== END ==
PROVIDERS: PCP Internal Medicine; Referring Provider Surgery; Visit Provider Surgery
DX: K21.9 Gastro-esophageal reflux disease without esophagitis (principal); R13.10 Dysphagia, unspecified; R94.8 Abnormal results of function studies of other organs and systems; K44.9 Diaphragmatic hernia without obstruction or gangrene
CPT/HCPCS: 74220

== ENCOUNTER 2023-11-14 13:16 | Day surgery (SDC) | payer MEDICARE, OTHER, SELFPAY ==
[2018-02-27 13:31] VITALS: BMI 28.9
[2023-11-14] MEDS: LACTATED RINGERS 1,000 ML 42 ML IV (13:34)
[2023-11-14 13:48] VITALS: BP 140/81; PULSE 80; RESP 18; TEMP 36.7; O2SAT 100
--- NOTE | 2023-11-14 14:05 | SUR.OPER ---
EGD SCOPE 047
--- NOTE | 2023-11-14 14:09 | PM.HP.1 ---
History of Present Illness History of Present Illness Date Patient Seen: 11/14/23 Time Patient Seen: 14:09 Chief complaint: EGD Narrative: Elina is a 78-year-old woman who presents with dysphagia. She had a recent barium swallow study which showed abnormal passage of the barium tablet into the stomach. She did have an EGD in [address] Keith with dilation of a Schatzki ring with a 42 Malay Savary dilator. Continues to complain of eructation dysphagia [facility] Medical History (Updated 09/11/23 @ 16:22 by Braulio Bronsno MD) Anemia Palpitations Postmenopausal Arthritis History of migraine with aura Urinary incontinence Lumbar degenerative disc disease GERD (gastroesophageal reflux disease) Psoriasis Esophageal stricture Heartburn Esophagitis Hiatal hernia Tinnitus Bilateral cataracts Hypothyroidism Aortic stenosis Hyperlipidemia Pulmonary artery congenital abnormality Restless leg syndrome Pain in right hip Surgical History Status post total replacement of right hip H/O cardiac catheterization History of ankle surgery History of esophagogastroduodenoscopy (EGD) H/O aortic valve replacement (~08/02/17) Social History household members: spouse Smoking Status: Never smoker alcohol intake: current Meds Home Medications and Allergies Home Medications Medication Instructions Recorded Confirmed Type melatonin 5 mg tablet 10 mg PO HSP PRN Sleep ##0 02/09/16 11/14/23 History ascorbic acid (vitamin C) 500 mg 500 mg PO DAILY 02/10/18 11/14/23 History tablet (Vitamin C) calcium carbonate 500 mg-vitamin 1 tab PO BID 02/10/18 11/14/23 History D3 3.125 mcg (125 unit) tablet (Calcium) levothyroxine 50 mcg tablet 50 mcg PO DAILY 02/10/18 11/14/23 History vitamin B complex (Super B-50 1 cap PO DAILY 02/10/18 09/11/23 History Complex capsule) PreserVision Lutein 1 tab PO BID 11/09/20 09/11/23 History aspirin 81 mg tablet,delayed 81 mg PO DAILY 11/09/20 11/14/23 History release lysine 500 mg tablet (L-Lysine) 1,000 mg PO DAILY 09/11/23 11/14/23 History metoprolol tartrate 25 mg tablet 25 mg PO DAILY PRN suppliment 09/11/23 11/14/23 History nitroglycerin 0.4 mg sublingual 0.4 mg sublingual Q5M PRN Rash 09/11/23 11/14/23 History tablet omeprazole 40 mg capsule,delayed 40 mg PO BID 09/11/23 11/14/23 History release rosuvastatin 40 mg tablet 40 mg PO DAILY 09/11/23 11/14/23 History Allergies Allergy/AdvReac Type Severity Reaction Status Date / Time Sulfa (Sulfonamide Allergy Severe HIVES, Verified 05/13/23 10:45 Antibiotics) SWELLING [SULFA (SULFONAMIDE ANTIBIOTICS)] soy Allergy Intermediate Itching, Verified 05/13/23 10:45 rash benzalkonium Allergy Verified 09/11/23 15:49 monosodium glutamate Allergy Verified 09/11/23 15:49 sodium metabisulfite Allergy Verified 09/11/23 15:49 tropicamide Allergy Verified 09/11/23 15:49 Exam Vital Signs (past 8 hours): - 11/14/23 13:48 Temperature 98.0 F Pulse Rate 80 Respiratory Rate 18 Blood Pressure 140/81 Pulse Oximetry 100 Oxygen Delivery Method Room Air Oxygen Delivery Method Room Air Const General: No acute distress Resp Effort & Inspection: normal respiratory effort Assessment & Plan Assessment and plan (1) Difficulty swallowing: Qualifiers: Dysphagia type: esophageal phase Qualified Code(s): R13.19 - Other dysphagia Status: Acute Plan We reviewed the risks and benefits of EGD with dilation of the esophagus and she would like proceed Time-Based Coding :: [TOTAL MINUTES] spent with patient and on the chart (including review of chart, obtaining history, exam, reviewing outside data, placing orders, documenting exam and treatment plan, and counseling patient) on [DATE].
[2023-11-14 14:27] VITALS: BP 111/89; PULSE 92; RESP 18; TEMP 36.7; O2SAT 92
[2023-11-14 14:32] VITALS: BP 115/68; PULSE 84; RESP 18; O2SAT 94
[2023-11-14 14:37] VITALS: BP 131/67; PULSE 82; RESP 20; O2SAT 97
[2023-11-14 14:43] VITALS: BP 126/61; PULSE 78; RESP 14; O2SAT 96
--- NOTE | 2023-11-14 14:52 | PM.OP.EGD ---
Operative Date/Time/Diagnoses Date of procedure: 11/14/23 Time of procedure: 14:52 Pre-op diagnosis: Dysphagia and eructation Post-op diagnosis: same Procedure & Clinicians Study performed: Esophagogastroduodenoscopy Same procedure as scheduled: Yes Surgeon: Braulio Bronson Procedure Notes Procedure in detail: Surgeon: Braulio Bronson MD Anesthesia: Kassi Rees timeout was performed. A bite blocked was placed. The patient was positioned in the left lateral decubitus position. Anesthesia was administered. The endoscope was inserted through the bite block and passed through the esophagus and stomach. There appeared to be a stenosis of the pylorus and the scope could not be advanced beyond the pylorus. The rest of the stomach was normal. The scope was retroflexed and no significant hiatal hernia was noted. The scope was withdrawn into the esophagus and no abnormalities were seen, specifically no stricture was noted. There was reflux of gastric contents into the esophagus seen during the exam. The remainder of the esophagus was normal. The scope was withdrawn. The patient was awakened and brought to recovery. Sedation time: 5 minutes Findings: Pyloric stenosis Post-procedure Disposition: PACU
== END 2023-11-14 15:13 | disposition home or self-care (01) ==
PROVIDERS: PCP Internal Medicine; Referring Provider Surgery; Visit Provider Surgery
PROC: 0DJ08ZZ Inspection of Upper Intestinal Tract, Via Natural or Artificial Opening Endoscopic (ICD-10-PCS; CPT 43235; principal; 2023-11-14 14:15)
DX: R13.10 Dysphagia, unspecified (principal); R14.2 Eructation; K31.1 Adult hypertrophic pyloric stenosis
CPT/HCPCS: 43235; J2704

== ENCOUNTER → 2024-03-27 18:34 | Outpatient (CLI) | payer MEDICARE, OTHER, SELFPAY ==
[2018-02-27 13:31] VITALS: BMI 28.9
--- NOTE | 2024-03-27 18:37 | DI.MRI.S_ITS ---
PROCEDURE: MR ANKLE RT WO CON INDICATIONS: ACHILLES TENDINITIS,RT LEG TECHNIQUE: Noncontrast sagittal T1 spin echo and T2 fast spin echo with fat saturation, axial proton density fast spin echo and T2 fast spin echo with fat saturation, coronal T1 spin echo and T2 fast spin echo with fat saturation through the ankle/hindfoot. COMPARISON: [facility] [place], CR, XR ANKLE 3 VIEWS WEIGHT BEARING RIGHT, 03/24/2024, 16:21. FINDINGS: Image quality: Excellent. Bones and joints: No acute trabecular bone injury or fracture. No hindfoot coalitions. Cartilage irregularity is seen at the posterior medial tibial plafond with subchondral cystic changes and subchondral edema with small marginal osteophytes. Mild focal subchondral cystic changes at the medial talar dome. Postsurgical changes at the distal fibula and distal tibia with subsequent hardware removal. Well as healed fracture deformity of the distal fibula. Subchondral cystic changes and small marginal osteophytes at the lateral process of the talus adjacent to the posterior subtalar facet. Nonedematous plantar calcaneal enthesophyte. Nonspecific subcutaneous edema surrounding the ankle, most prominent posteriorly. Medial structures: The deltoid ligament and the spring ligament complex are intact. The posterior tibialis, flexor digitorum longus, and flexor hallucis longus tendons are intact. The posterior tibial neurovascular bundle appears normal within the tarsal tunnel, without extrinsic mass effect. Lateral structures: Remote prior sprains of the anterior and posterior talofibular ligaments and the calcaneofibular ligament. The anterior and posterior tibiofibular ligaments are intact. Mild peroneus brevis and longus tendinosis and tenosynovitis. The sinus tarsi demonstrates normal fatty signal. Anterior structures: The tibialis anterior, extensor hallucis longus, and extensor digitorum longus tendons appear intact. Posterior and plantar structures: Mild Achilles tendinosis. Edema is seen in Kager's fat pad suspicious for peritenonitis. Fatty infiltration of the included portion of the distal soleus muscle. The proximal plantar fascia is mildly thickened without associated edema. No abductor digiti minimi muscle atrophy to suggest Luna neuropathy. IMPRESSION: 1. Mild Achilles tendinosis and peritenonitis. 2. Mild peroneus brevis and longus tendinosis and tenosynovitis. 3. Remote prior low to moderate grade sprains of the lateral ankle ligaments. 4. Mild degenerative changes at the mortise joint and posterior subtalar joint with subchondral cystic changes and edema. 5. Mild chronic proximal plantar fasciitis. Approved by: Roberto Cantu M.D. on 03/30/2024 at 9:48
== END ==
PROVIDERS: PCP Internal Medicine; Referring Provider Orthopaedic Surgery Foot and Ankle Surgery; Visit Provider Orthopaedic Surgery Foot and Ankle Surgery
DX: M76.61 Achilles tendinitis, right leg (principal); M65.971 Unspecified synovitis and tenosynovitis, right ankle and foot; M72.2 Plantar fascial fibromatosis; S93.491A Sprain of other ligament of right ankle, initial encounter
CPT/HCPCS: 73721

== ENCOUNTER 2024-11-20 14:05 | Emergency (ER) | payer MEDICARE, OTHER, SELFPAY ==
[2018-02-27 13:31] VITALS: BMI 28.9
[2024-11-20] VITALS (12 sets, daily range): BP systolic 147–188; BP diastolic 66–86; PULSE 64–83; RESP 12–20; TEMP 36.7; O2SAT 95–100; BMI 30.1
--- NOTE | 2024-11-20 15:00 | EKG_ITS ---
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
--- NOTE | 2024-11-20 15:00 | DI.RAD.S_ITS ---
PROCEDURE: XR CHEST 1V INDICATIONS: Chest Pain TECHNIQUE: One view of the chest was acquired. COMPARISON: [facility], CR, XR CHEST 2V, 06/04/2022, 12:01. [facility], CR, XR CHEST 1V, 02/11/2021, 15:49. FINDINGS: Surgical changes and devices: Sternotomy and prosthetic valve. Lungs and pleura: Lungs are clear. No pleural effusions or pneumothorax. Mediastinum: Mediastinal contours appear normal. Heart size is normal. Bones and chest wall: No suspicious bony lesions. Overlying soft tissues appear unremarkable. IMPRESSION: No acute cardiopulmonary abnormality is seen. Dictated by: Mark Ivan M.D. on 11/20/2024 at 15:42 Approved by: Mark Ivan M.D. on 11/20/2024 at 15:43
[2024-11-20 15:13] LABS: Add Manual Diff / Slide Review NO; Hematocrit 37.1 % (36-46); Hemoglobin 13.0 g/dL (12.0-16.0); Lymphocytes Absolute Auto 1500 /uL (1100-4500); Mean Corpuscular HGB Conc 35.0 % (30-36); Mean Corpuscular Hemoglobin 32.6 PG (26-34); Mean Corpuscular Volume 93.0 fL (80-100); Platelet Count 230 X10^3/uL (150-400)
[2024-11-20 15:24] LABS: INR 1.0 (0.9-1.3); Prothrombin Time 11.1 SECONDS (9.4-12.5)
[2024-11-20 15:27] LABS: PTT Partial Thromboplastin Tim 30 SECONDS (25.1-36.5)
[2024-11-20 15:28] LABS: Alanine Aminotransferase 30 IU/L (<35); Albumin 5.0 g/dL (3.5-5.0); Albumin Globulin Ratio 1.4 (1.0-2.8); Alkaline Phosphatase 100 U/L (38-126); Blood Urea Nitrogen 18 mg/dL (7-17); Calcium 9.7 mg/dL (8.4-10.2); Carbon Dioxide 27 mmol/L (22-32); Chloride 103 mmol/L (98-107); Creatine Kinase 57 U/L (30-135); Estimated Glomerular Filt Rate > 60 mL/min (>60); Globulin 3.5 g/dL (1.7-4.1); Glucose 104 mg/dL (70-99); HEMOLYSIS 16 (0-50); Lipase 98 U/L (23-300); Magnesium 1.8 mg/dL (1.6-2.3); Potassium 4.1 mmol/L (3.4-5.1); Sodium 140 mmol/L (137-145); Total Protein 8.5 g/dL (6.3-8.2)
[2024-11-20 15:40] LABS: NT-proBNP (BNP-Adult 18+) 52 pg/mL (<450); Troponin I < 0.012 ng/mL (0.01-0.034)
--- NOTE | 2024-11-20 17:16 | PC.NURSE ---
Iv placed by another nurse
--- NOTE | 2024-11-20 17:20 | ED.CHESTPAIN ---
HPI - Chest Pain <Brigido Page, DO - Last Filed: 11/20/24 18:18> General Chief Complaint: Chest Pain Stated Complaint: Rapid beating heart, sick to her stomach Time Seen by Provider: 11/20/24 14:19 Source: patient Mode of arrival: Family Vehicle Limitations: no limitations History of Present Illness HPI narrative: [age] female history of dyslipidemia, prior aortic valve replacement presents with midsternal chest pain nonradiating associated with lightheadedness dizziness and nausea for which she did not take anything prior to arrival here. She describes it as pressure type sensation that comes and goes for a few sec. Other than what is stated 14 point review of system is negative. Related Data Home Medications ?Medication ?Instructions ?Recorded ?Confirmed melatonin 5 mg tablet 10 mg PO HSP PRN Sleep ##0 02/09/16 11/14/23 ascorbic acid (vitamin C) 500 mg 500 mg PO DAILY 02/10/18 11/14/23 tablet (Vitamin C) calcium 500 mg (as 1 tab PO BID 02/10/18 11/14/23 carbonate)-vitamin D3 3.125 mcg (125 unit) tablet (Calcium) levothyroxine 50 mcg tablet 50 mcg PO DAILY 02/10/18 11/14/23 vitamin B complex (Super B-50 1 cap PO DAILY 02/10/18 09/11/23 Complex capsule) PreserVision Lutein 1 tab PO BID 11/09/20 09/11/23 aspirin 81 mg tablet,delayed 81 mg PO DAILY 11/09/20 11/14/23 release lysine 500 mg tablet (L-Lysine) 1,000 mg PO DAILY 09/11/23 11/14/23 metoprolol tartrate 25 mg tablet 25 mg PO DAILY PRN suppliment 09/11/23 11/14/23 nitroglycerin 0.4 mg sublingual 0.4 mg sublingual Q5M PRN Rash 09/11/23 11/14/23 tablet omeprazole 40 mg capsule,delayed 40 mg PO BID 09/11/23 11/14/23 release rosuvastatin 40 mg tablet 40 mg PO DAILY 09/11/23 11/14/23 Allergies Allergy/AdvReac Type Severity Reaction Status Date / Time Sulfa (Sulfonamide Allergy Severe HIVES, Verified 11/20/24 14:53 Antibiotics) (SULFA SWELLING (SULFONAMIDE ANTIBIOTICS)) soy Allergy Intermediate Itching, Verified 11/20/24 14:53 rash benzalkonium Allergy Verified 11/20/24 14:53 monosodium glutamate Allergy Verified 11/20/24 14:53 sodium metabisulfite Allergy Verified 11/20/24 14:53 tropicamide Allergy Verified 11/20/24 14:53 Review of Systems <Brigido Page DO - Last Filed: 11/20/24 18:18> Review of Systems ROS Unobtainable: All systems reviewed & are unremarkable except as noted in HPI and below Patient History <Brigido Page DO - Last Filed: 11/20/24 18:18> Medical History (Updated 11/20/24 @ 19:35 by Stanley Lucas MD) Anemia Palpitations Postmenopausal Arthritis History of migraine with aura Urinary incontinence Lumbar degenerative disc disease GERD (gastroesophageal reflux disease) Psoriasis Esophageal stricture Heartburn Esophagitis Hiatal hernia Tinnitus Bilateral cataracts Hypothyroidism Aortic stenosis Hyperlipidemia Pulmonary artery congenital abnormality Restless leg syndrome Pain in right hip Surgical History Status post total replacement of right hip H/O cardiac catheterization History of ankle surgery History of esophagogastroduodenoscopy (EGD) H/O aortic valve replacement (~08/02/17) Social History household members: spouse Smoking Status: Never smoker alcohol intake: current Smoking Status: Never smoker alcohol intake frequency: 0-2 drinks per day Exam <Brigido Page DO - Last Filed: 11/20/24 18:18> Narrative Exam Narrative: GENERAL: [79] year old patient appears stated age. Well-developed patient, in mild distress. HEAD: Atraumatic. Normocephalic. EYES: Pupils equal round and reactive. Extraocular motions intact. No scleral icterus. No injection or drainage. ENT: Nose without bleeding, purulent drainage. Throat without erythema, tonsillar hypertrophy or exudate. Airway patent. NECK: Trachea midline. Non tender CARDIOVASCULAR: Regular rate and rhythm without murmurs, gallops, or rubs. RESPIRATORY: Clear to auscultation. Breath sounds equal bilaterally. No wheezes, rales, or rhonchi. GASTROINTESTINAL: Abdomen soft, non-tender, nondistended. EXTREMITIES: No edema or joint tenderness. BACK: Nontender without deformity or crepitance. No flank tenderness. NEURO: AOx3. SKIN: No rash or erythema of visible areas Initial Vital Signs Initial Vital Signs: Vital Signs Temperature 98.1 F 11/20/24 14:53 Pulse Rate 77 11/20/24 14:53 Respiratory Rate 16 11/20/24 14:53 Blood Pressure 176/86 H 11/20/24 14:53 Pulse Oximetry 97 11/20/24 14:53 Oxygen Delivery Method Room Air 11/20/24 14:53 <Stanley Lucas MD - Last Filed: 11/20/24 19:38> Initial Vital Signs Initial Vital Signs: Vital Signs Temperature 98.1 F 11/20/24 14:53 Pulse Rate 77 11/20/24 14:53 Respiratory Rate 16 11/20/24 14:53 Blood Pressure 176/86 H 11/20/24 14:53 Pulse Oximetry 97 11/20/24 14:53 Oxygen Delivery Method Room Air 11/20/24 14:53 Scores <Brigido Page DO - Last Filed: 11/20/24 18:18> HEART Score Heart Score history: Moderately Suspicious Heart Score EKG: Non-Specific repolarization disturbance Heart Score Age: > or = 65 years old Heart Score risk factors: 1-2 risk factors Heart Score troponin: < or = to normal limit Heart Score Total: 5 <Stanley Lucas MD - Last Filed: 11/20/24 19:38> HEART Score Heart Score Total: 5 Course <Brigido Page DO - Last Filed: 11/20/24 18:18> Orders Ordered: ED Orders 11/20/24 15:00 XR chest 1V Stat EKG-12 Lead Stat 11/20/24 15:04 Complete Blood Count AUTO DIFF Stat Comprehensive Metabolic Panel Stat Lipase Stat Magnesium Stat NT-proBNP (BNP-Adult 18+) Stat PTT Partial Thromboplastin Escobar Stat Prothrombin Time INR Stat Troponin & CK Cardiac Panel Stat 11/20/24 18:11 Trop I [Troponin I] Stat Nitroglycerin (Nitroglycerin 0.4 Mg Sl Tab) 0.4 mg SL [id number] PRN PRN Reason: Chest Pain Last Admin: 11/20/24 17:26 Dose: 0.4 mg Documented By: TAN Discontinued Medications Aspirin (Aspirin 81 Mg Chew Tab) 324 mg PO NOW ONE Stop: 11/20/24 15:01 Last Admin: 11/20/24 17:24 Dose: 324 mg Documented By: TAN Vital Signs Vital signs: Vital Signs - 8 hr 11/20/24 14:53 11/20/24 17:11 11/20/24 17:14 Temperature 98.1 F Pulse Rate 77 77 Respiratory Rate 16 Blood Pressure 176/86 H 188/79 H Pulse Oximetry 97 99 Oxygen Delivery Method Room Air 11/20/24 17:14 11/20/24 17:16 11/20/24 17:18 Temperature Pulse Rate 75 69 Respiratory Rate 14 Blood Pressure 188/79 H 176/79 H Pulse Oximetry 100 100 Oxygen Delivery Method 11/20/24 17:18 11/20/24 17:26 11/20/24 17:30 Temperature Pulse Rate 72 79 Respiratory Rate 18 Blood Pressure 176/79 H 147/66 H Pulse Oximetry 100 Oxygen Delivery Method 11/20/24 17:30 11/20/24 18:00 11/20/24 18:00 Temperature Pulse Rate 83 64 Respiratory Rate 18 19 Blood Pressure 160/72 H Pulse Oximetry 98 98 Oxygen Delivery Method 11/20/24 18:21 11/20/24 18:21 11/20/24 18:30 Temperature Pulse Rate 73 Respiratory Rate 12 Blood Pressure 180/81 H 171/78 H Pulse Oximetry 96 Oxygen Delivery Method 11/20/24 18:30 11/20/24 19:00 11/20/24 19:00 Temperature Pulse Rate 64 69 Respiratory Rate 20 18 Blood Pressure 165/75 H Pulse Oximetry 99 98 Oxygen Delivery Method <Stanley Lucas MD - Last Filed: 11/20/24 19:38> Orders Ordered: ED Orders 11/20/24 15:00 XR chest 1V Stat EKG-12 Lead Stat 11/20/24 15:04 Complete Blood Count AUTO DIFF Stat Comprehensive Metabolic Panel Stat Lipase Stat Magnesium Stat NT-proBNP (BNP-Adult 18+) Stat PTT Partial Thromboplastin Escobar Stat Prothrombin Time INR Stat Troponin & CK Cardiac Panel Stat 11/20/24 18:11 Trop I [Troponin I] Stat Nitroglycerin (Nitroglycerin 0.4 Mg Sl Tab) 0.4 mg SL [id number] PRN PRN Reason: Chest Pain Last Admin: 11/20/24 17:26 Dose: 0.4 mg Documented By: TAN Discontinued Medications Aspirin (Aspirin 81 Mg Chew Tab) 324 mg PO NOW ONE Stop: 11/20/24 15:01 Last Admin: 11/20/24 17:24 Dose: 324 mg Documented By: TAN Vital Signs Vital signs: Vital Signs - 8 hr 11/20/24 14:53 11/20/24 17:11 11/20/24 17:14 Temperature 98.1 F Pulse Rate 77 77 Respiratory Rate 16 Blood Pressure 176/86 H 188/79 H Pulse Oximetry 97 99 Oxygen Delivery Method Room Air 11/20/24 17:14 11/20/24 17:16 11/20/24 17:18 Temperature Pulse Rate 75 69 Respiratory Rate 14 Blood Pressure 188/79 H 176/79 H Pulse Oximetry 100 100 Oxygen Delivery Method 11/20/24 17:18 11/20/24 17:26 11/20/24 17:30 Temperature Pulse Rate 72 79 Respiratory Rate 18 Blood Pressure 176/79 H 147/66 H Pulse Oximetry 100 Oxygen Delivery Method 11/20/24 17:30 11/20/24 18:00 11/20/24 18:00 Temperature Pulse Rate 83 64 Respiratory Rate 18 19 Blood Pressure 160/72 H Pulse Oximetry 98 98 Oxygen Delivery Method 11/20/24 18:21 11/20/24 18:21 11/20/24 18:30 Temperature Pulse Rate 73 Respiratory Rate 12 Blood Pressure 180/81 H 171/78 H Pulse Oximetry 96 Oxygen Delivery Method 11/20/24 18:30 11/20/24 19:00 11/20/24 19:00 Temperature Pulse Rate 64 69 Respiratory Rate 20 18 Blood Pressure 165/75 H Pulse Oximetry 99 98 Oxygen Delivery Method MDM - Chest Pain <Brigido Page, - Last Filed: 11/20/24 18:18> Lab Data 11/20/24 15:04 11/20/24 15:04 Labs: Lab Results 11/20/24 11/20/24 Range/Units 15:04 18:11 WBC 8.2 (4.5-11.0) X10^3/uL RBC 3.99 L (4.0-5.2) X10^6/uL Hgb 13.0 (12.0-16.0) g/dL Hct 37.1 (36-46) % MCV 93.0 (80-100) fL MCH 32.6 (26-34) PG MCHC 35.0 (30-36) % RDW 12.6 (11.6-14.8) % Plt Count 230 (150-400) X10^3/uL Neut % (Auto) 72.9 (50-75) % Lymph % (Auto) 18.0 L (25-40) % Letcher % (Auto) 6.4 (3-14) % Eos % (Auto) 1.7 L (2-4) % Baso % (Auto) 1.0 (0-2) % Neut # (Auto) 5900 (9812-0674) /uL Lymph # (Auto) 1500 (5855-5809) /uL Letcher # (Auto) 500 (0-900) /uL Eos # (Auto) 100 (0-450) /uL Baso # (Auto) 100 (0-100) /uL PT 11.1 (9.4-12.5) SECONDS INR 1.0 (0.9-1.3) APTT 30 (25.1-36.5) SECONDS Sodium 140 (137-145) mmol/L Potassium 4.1 (3.4-5.1) mmol/L Chloride 103 (98-107) mmol/L Carbon Dioxide 27 (22-32) mmol/L BUN 18 H (7-17) mg/dL Creatinine 0.65 (0.52-1.04) mg/dL Estimated GFR > 60 (>60) mL/min BUN/Creatinine Ratio 27.7 H (6-22) Glucose 104 H (70-99) mg/dL Calcium 9.7 (8.4-10.2) mg/dL Magnesium 1.8 (1.6-2.3) mg/dL Total Bilirubin 0.4 (0.2-1.3) mg/dL AST 44 H (14-36) IU/L ALT 30 (<35) IU/L Alkaline Phosphatase 100 (38-126) U/L Total Creatine Kinase 57 (30-135) U/L Troponin I < 0.012 < 0.012 (0.01-0.034) ng/mL NT-Pro-B Natriuret Pep 52 (<450) pg/mL Total Protein 8.5 H (6.3-8.2) g/dL Albumin 5.0 (3.5-5.0) g/dL Globulin 3.5 (1.7-4.1) g/dL Albumin/Globulin Ratio 1.4 (1.0-2.8) Lipase 98 (23-300) U/L Imaging Data Chest x-ray: Radiologist's Impression: [address] [address] XRay Report Signed Patient: Elina Yoder MR#: [id number] : 1945 Acct:[id number] Age/Sex: 79 / F Date of Service: 11/20/24 Loc: ED Accession Number: [id number] Procedure: XR chest 1V Ordering Provider: Brigido Page D.O. PROCEDURE: XR CHEST 1V INDICATIONS: Chest Pain TECHNIQUE: One view of the chest was acquired. COMPARISON: [facility], CR, XR CHEST 2V, 06/04/2022, 12:01. [facility], CR, XR CHEST 1V, 02/11/2021, 15:49. FINDINGS: Surgical changes and devices: Sternotomy and prosthetic valve. Lungs and pleura: Lungs are clear. No pleural effusions or pneumothorax. Mediastinum: Mediastinal contours appear normal. Heart size is normal. Bones and chest wall: No suspicious bony lesions. Overlying soft tissues appear unremarkable. IMPRESSION: No acute cardiopulmonary abnormality is seen. ECG Data Interpretation: NSR HR 74 NV 168 QRS [address]-t wave change Unchanged from 09/27/17 MDM Narrative Medical decision making narrative: All lab work, vital signs, nurse triage note, medication list, previous ER visits, and all imaging studies reviewed. Patient given aspirin and nitro here. Heart score of 5. EKG showed normal sinus rhythm with no ST-T wave. changes. Pending 2nd set troponin. Patient signed out to Dr. Friedman at shift change pending final disposition. <Stanley Lucas MD - Last Filed: 11/20/24 19:38> Lab Data Labs: Lab Results 11/20/24 11/20/24 Range/Units 15:04 18:11 WBC 8.2 (4.5-11.0) X10^3/uL RBC 3.99 L (4.0-5.2) X10^6/uL Hgb 13.0 (12.0-16.0) g/dL Hct 37.1 (36-46) % MCV 93.0 (80-100) fL MCH 32.6 (26-34) PG MCHC 35.0 (30-36) % RDW 12.6 (11.6-14.8) % Plt Count 230 (150-400) X10^3/uL Neut % (Auto) 72.9 (50-75) % Lymph % (Auto) 18.0 L (25-40) % Letcher % (Auto) 6.4 (3-14) % Eos % (Auto) 1.7 L (2-4) % Baso % (Auto) 1.0 (0-2) % Neut # (Auto) 5900 (4782-0486) /uL Lymph # (Auto) 1500 (3289-2955) /uL Letcher # (Auto) 500 (0-900) /uL Eos # (Auto) 100 (0-450) /uL Baso # (Auto) 100 (0-100) /uL PT 11.1 (9.4-12.5) SECONDS INR 1.0 (0.9-1.3) APTT 30 (25.1-36.5) SECONDS Sodium 140 (137-145) mmol/L Potassium 4.1 (3.4-5.1) mmol/L Chloride 103 (98-107) mmol/L Carbon Dioxide 27 (22-32) mmol/L BUN 18 H (7-17) mg/dL Creatinine 0.65 (0.52-1.04) mg/dL Estimated GFR > 60 (>60) mL/min BUN/Creatinine Ratio 27.7 H (6-22) Glucose 104 H (70-99) mg/dL Calcium 9.7 (8.4-10.2) mg/dL Magnesium 1.8 (1.6-2.3) mg/dL Total Bilirubin 0.4 (0.2-1.3) mg/dL AST 44 H (14-36) IU/L ALT 30 (<35) IU/L Alkaline Phosphatase 100 (38-126) U/L Total Creatine Kinase 57 (30-135) U/L Troponin I < 0.012 < 0.012 (0.01-0.034) ng/mL NT-Pro-B Natriuret Pep 52 (<450) pg/mL Total Protein 8.5 H (6.3-8.2) g/dL Albumin 5.0 (3.5-5.0) g/dL Globulin 3.5 (1.7-4.1) g/dL Albumin/Globulin Ratio 1.4 (1.0-2.8) Lipase 98 (23-300) U/L MDM Narrative Medical decision making narrative: All lab work, vital signs, nurse triage note, medication list, previous ER visits, and all imaging studies reviewed. Patient given aspirin and nitro here. Heart score of 5. EKG showed normal sinus rhythm with no ST-T wave. changes. Pending 2nd set troponin. Patient signed out to Dr. Friedman at shift change pending final disposition. 18:00 Patient care transferred to md at the change of shift with 2nd troponin pending. This is a 79-year-old female patient with a history of GERD, dyslipidemia and hypertension who has had waxing and waning chest pressure since about 1:00 a.m. this afternoon. First troponin is negative along with other labs, EKG and chest x-ray. 19:35 Second troponin negative. On my evaluation of the patient she is no longer in any pain or other symptoms. I explained her the negative workup with troponin enzymes x2 +EKG and chest x-ray. This appears to be noncardiac chest discomfort. She will monitor symptoms and follow up with her provider within the next week. Return to the ER if worse Discharge Plan Departure Patient Disposition: Home Clinical Impression: Non-cardiac chest pain Instructions: DI for Atypical Chest Pain Activity Restrictions/Additional Instructions: Plan: Continue current medications and monitor symptoms. Follow up with your doctor within the next 5-6 days. Return to the ER if worse. Prescriptions: No Action melatonin 5 MG tablet 10 mg PO HSP PRN (Reason: Sleep) Qty: 0 metoprolol tartrate 25 mg tablet 25 mg PO DAILY PRN (Reason: suppliment) rosuvastatin 40 mg tablet 40 mg PO DAILY nitroglycerin 0.4 mg tablet, sublingual 0.4 mg sublingual Q5M PRN (Reason: Rash) Patient Comments: pt states has never used and its for GERD not heart? Rx Instructions: do not exceed 3 doses per episode lysine [L-Lysine] 500 mg tablet 1,000 mg PO DAILY levothyroxine 50 mcg Tablet 50 mcg PO DAILY ascorbic acid (vitamin C) [Vitamin C] 500 mg Tablet 500 mg PO DAILY vitamin B complex [Super B-50 Complex] Capsule 1 cap PO DAILY calcium carbonate-vitamin D3 [Calcium 500 + D (D3)] 500 mg(1,250mg) -125 unit Tablet 1 tab PO BID aspirin 81 mg tablet,delayed release (DR/EC) 81 mg PO DAILY PreserVision Lutein 1 tab PO BID omeprazole 40 mg capsule,delayed release(DR/EC) 40 mg PO BID Referrals: Jennifer Darby MD [Primary Care Provider, Internal Medicine] Stand Alone Forms: Patient Portal/API
[2024-11-20] MEDS: ASPIRIN 81 MG CHEW TAB 324 MG PO (17:24)
[2024-11-20] MEDS: NITROGLYCERIN 0.4 MG SL TAB SL (17:26)
--- NOTE | 2024-11-20 17:43 | PC.NURSE ---
chest pressure gone after 1 nitro
[2024-11-20 18:42] LABS: Troponin I < 0.012 ng/mL (0.01-0.034)
== END 2024-11-20 19:45 | disposition home or self-care (01) ==
PROVIDERS: Family Medicine; Emergency Provider Emergency Medicine; PCP Internal Medicine
DX: R07.89 Other chest pain (principal); R42 Dizziness and giddiness; Z95.2 Presence of prosthetic heart valve
CPT/HCPCS: 71045; 80053; 82550; 83690; 83735; 83880; 84484; 85025; 85610; 85730; 93005; 99283; 99284

== ENCOUNTER → 2024-12-28 14:05 | Outpatient (CLI) | payer MEDICARE, OTHER, SELFPAY ==
[2018-02-27 13:31] VITALS: BMI 28.9
--- NOTE | 2024-12-28 14:06 | DI.MG.S_ITS ---
MM screening mammo BI: 12/28/2024. BI-RADS: 0 CLINICAL: 79-year old female for bilateral screening mammogram. Tyrer-Cuzick lifetime risk of 3.2%. No personal or first-degree family history of breast cancer. PRIOR EXAMS 12/27/2022, 11/25/2020, 02/26/2019, 11/08/2015. MAMMOGRAPHY TECHNIQUE: 2D and 3D (tomosynthesis) digital mammographic views obtained, with additional images as needed for full coverage. Current study was also evaluated with a Computer Aided Detection (CAD) system. DENSITY B. There are scattered areas of fibroglandular density. MAMMOGRAPHY FINDINGS Right: No suspicious mass, asymmetry, microcalcification, or other abnormality seen. Left: Upper Outer Quadrant, Middle depth: Focal asymmetry needing additional imaging evaluation. IMPRESSION: Right * No evidence of malignancy. Left (Asymmetry): Upper Outer Quadrant, Middle depth * Incomplete - focal asymmetry needing additional imaging evaluation. RECOMMENDATIONS Left: Upper Outer Quadrant, Middle depth * Further evaluation with diagnostic mammography and diagnostic ultrasound. Ultrasound to be performed only if needed. OVERALL ASSESSMENT CATEGORY BI-RADS-0: Incomplete - Need Additional Imaging Evaluation. ELECTRONICALLY SIGNED: Nadya Morataya M.D. on 01/02/2025 at 09:51:43 AM PT Interpreting Station ID: [id number]
--- NOTE | 2024-12-28 14:06 | DI.RAD.S_ITS ---
PROCEDURE: XR DEXA AXIAL SKELETON INDICATIONS: annual screenings COMPARISON: [facility], [place], XR DEXA AXIAL SKELETON, 12/27/2022, 15:15. FINDINGS: Lumbar Spine: Bone mineral density 1.024 (previously 1.028) g/cm2, T score -0.2 (previously -0.2). Left Femoral Neck: Bone mineral density 0.591 (previously 0.620) g/cm2, T score -2.3 (previously -2.1). Left Hip: Bone mineral density 0.722 (previously 0.737) g/cm2, T score -1.8 (previously -1.7). Fracture Risk Calculation (when applicable): 10-year fracture risk of a major osteoporotic fracture 16 percent and of a hip fracture 4.6 percent. (T score greater or equal to -1.0 to: NORMAL) (T score from -1.1 to -2.4: OSTEOPENIA) (T score less than or equal to -2.5: OSTEOPOROSIS) IMPRESSION: Osteopenia--- recommend repeat DEXA in 2-3 years for reassessment. Follow-up guidelines as follows: Osteoporosis: Consider a repeat DEXA and Vertebral Fracture Assessment (VFA) exam in 2 years or sooner if medically necessary, to reassess this patient's status. Osteopenia: Consider a repeat DEXA in 2-3 years to reassess this patient's status, or if there is a new clinical indication. Normal: Consider a repeat DEXA in 5 years or sooner, or if there is a new clinical indication. All treatment decisions require clinical judgment and consideration of individual patient factors, including patient preferences, comorbidities, previous drug use, risk factors not captured in the FRAX model (e.g., frailty, falls, vitamin D deficiency, increased bone turnover, interval significant decline in bone density ) and possible under- or over-estimation of fracture risk by FRAX. In addition, the NOF Guide recommends that FDA-approved medical therapies be considered in postmenopausal women and men age >= 50 years with a: * Hip or vertebral (clinical or morphometric) fracture * T-score of <=-2.5 at the spine or hip * Ten-year fracture probability by FRAX of >= 3% for hip fracture or >=20% for major osteoporotic fracture. Dictated by: Bryan Kearney M.D. on 12/28/2024 at 18:59 Approved by: Bryan Kearney M.D. on 12/28/2024 at 19:06
== END ==
LOC: RAD 14:05
PROVIDERS: PCP Internal Medicine; Referring Provider Internal Medicine; Visit Provider Internal Medicine
DX: Z12.31 Encounter for screening mammogram for malignant neoplasm of breast (principal); M85.852 Other specified disorders of bone density and structure, left thigh; Z78.0 Asymptomatic menopausal state
CPT/HCPCS: 77063; 77067; 77080

== ENCOUNTER → 2025-01-06 12:22 | Outpatient (CLI) | payer MEDICARE, OTHER, SELFPAY ==
[2018-02-27 13:31] VITALS: BMI 28.9
--- NOTE | 2025-01-07 17:16 | DI.NM.S_ITS ---
DATE OF SERVICE: 01/06/2025 EXERCISE PERFUSION STUDY INDICATIONS: Chest pain with history of bypass surgery, aortic valve replacement in 2018 at that time minimal CAD, hypertension. RADIOPHARMACEUTICAL: 25.5 millicurie technetium-99m Myoview IV was injected at stress and 26.1 millicurie technetium-99m Myoview IV was injected at rest. CARDIAC STRESS: The patient underwent exercise perfusion study under the supervision of an attending staff. The patient walked on Edgar protocol for 5 minutes and 14 seconds, maximum heart rate of 129, which was 106% of target heart rate with resting blood pressure of 103/84 and peak blood pressure 172/92 mmHg with KHOA -5%. Baseline rhythm sinus. During stress, no convincing ischemic changes seen. No chest pain. The patient had some shortness of breath. RAW DATA: There is adequate myocardial uptake. GATED STUDY: Resting LV ejection fraction 85 and stress LV ejection fraction 88% without any obvious wall motion abnormalities. Resting end- diastolic volume 74 mL. TID ratio 0.92, which is within normal limits. MYOCARDIAL PERFUSION SCAN: Stress supine and resting supine and stress prone images revealed normal myocardial perfusion. CONCLUSION: This is a normal myocardial perfusion study with summed stress score and summed rest score zero. Hyperdynamic LV function. Fair exercise tolerance. No chest pain. No ischemic EKG changes or significant arrhythmias. Overall, low-risk exercise perfusion study. The patient had exercise perfusion study in October, at that time she had normal myocardial perfusion as well. Elina Yoder - CAIN/deondre/LALIT doc#: [id number]/job#: [id number] dd: 01/07/2025 16:55:00 dt: 01/07/2025 17:08:00 DICTATING MD/COPIES TO: Anai Lin MD COPIES MNE: AMPARO;
== END ==
LOC: NUCM 12:23
PROVIDERS: PCP Internal Medicine; Referring Provider Internal Medicine Cardiovascular Disease; Visit Provider Internal Medicine Cardiovascular Disease
DX: I35.0 Nonrheumatic aortic (valve) stenosis (principal); I47.10 Supraventricular tachycardia, unspecified; R94.31 Abnormal electrocardiogram [ECG] [EKG]; Z95.2 Presence of prosthetic heart valve
CPT/HCPCS: 78452; 93017; A9502

== ENCOUNTER → 2025-03-05 10:21 | Outpatient (CLI) | payer MEDICARE, OTHER, SELFPAY ==
[2018-02-27 13:31] VITALS: BMI 28.9
--- NOTE | 2025-03-05 10:22 | DI.MG.S_ITS ---
US breast LT limited, MM diagnostic mammo unilat LT: 03/05/2025 BI-RADS: 4C CLINICAL: 79-year old female for left diagnostic mammogram and left diagnostic breast ultrasound that is a recall from screening on 12/28/2024. Tyrer-Cuzick lifetime risk of 3.2%. No personal or first-degree family history of breast cancer. PRIOR EXAMS Mammogram(s): 12/28/2024, 02/26/2023, 02/26/2021, 02/26/2019, 11/08/2015. MAMMOGRAPHY TECHNIQUE: 2D and 3D (tomosynthesis) digital mammographic views obtained, with additional images as needed for full coverage. Current study was also evaluated with a Computer Aided Detection (CAD) system. ULTRASOUND TECHNIQUE Real-time balderrama scale and color doppler imaging of the area of clinical interest was performed with image documentation. Left targeted breast ultrasound of the area of clinical interest and the axilla was performed with image documentation. DENSITY Left: B. There are scattered areas of fibroglandular density. MAMMOGRAPHY FINDINGS Left (finding-1): Upper Outer Quadrant, Middle depth, measuring 1cm: Correlating with findings on screening mammogram, there is a developing focal asymmetry present. ULTRASOUND FINDINGS Left (finding-1): Upper Outer at 2:00, 8 cm from nipple, measuring 0.9 x 0.7 x 0.9 cm: Correlating with findings on mammogram there is an irregularly shaped, indistinct, hypoechoic mass that is non-parallel showing posterior acoustic shadowing. Doppler shows internal vascularity. Left: Axilla: No definite abnormal lymph nodes are seen in the axilla. IMPRESSION: Left (Mass): Upper Outer at 2:00, 8 cm from nipple, measuring 0.9 x 0.7 x 0.9 cm * High Suspicion for Malignancy. RECOMMENDATIONS Left: Upper Outer at 2:00, 8 cm from nipple * Ultrasound-guided biopsy for further evaluation. COMMENTS: Findings and recommendations were conveyed to the patient during today's evaluation by Dr. Obregon. OVERALL ASSESSMENT CATEGORY BI-RADS-4: Suspicious. ELECTRONICALLY SIGNED: Marline Ignacio M.D. on 03/05/2025 at 12:43:13 PM PT Interpreting Station ID: [id number]
== END ==
PROVIDERS: PCP Internal Medicine; Referring Provider Internal Medicine; Visit Provider Internal Medicine
DX: R92.8 Other abnormal and inconclusive findings on diagnostic imaging of breast (principal); N63.21 Unspecified lump in the left breast, upper outer quadrant
CPT/HCPCS: 76642; 77065; G0279

== ENCOUNTER → 2025-04-14 08:24 | Outpatient (CLI) | payer MEDICARE, OTHER, SELFPAY ==
[2018-02-27 13:31] VITALS: BMI 28.9
--- NOTE | 2025-04-14 | PATH_ITS ---
[facility] Accession Number: [id number] No. of containers..01 Tissue . 01 Material submitted: . breast - LEFT BREAST 2:00, 8CMFN MASS . 01 Clinical history: . LEFT BREAST 2:00, 8CMFN MASS . 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 Histologic grade ([place] histologic score): Grade 2 of 3 (score 6 of 9). -Tubular formation: Poor (score 3 of 3) -Nuclear grade: Intermediate (score 2 of 3). -Mitotic rate: Low (score 1 of 3). Largest invasive focus: 5 mm. Ductal carcinoma in situ (DCIS): Not identified. Lymphovascular invasion: Not identified. Associated calcifications: Not identified. Biomarkers: -ER: Negative (< 1%). -PA: Negative (< 1%). -HER2 by IHC: Equivocal (score 2+). -Ki-67: Low (5%, estimated). [facility] [place] 04/21/2025 1327 Local . 01 Comment: Additional immunohistochemistry for e-cadherin, myosin, and p63 are performed on block A1. E-cadherin is positive and both myosin and p63 are negative, supporting the above diagnosis. . Reflex FISH for equivocal HER2 has been ordered and will be reported in an addendum. . The preliminary results were reported to KEO Gomez at Dr. Darby's office on 04/20/2025 at 2:25pm. . As part of routine quality engineer medical device, this case was reviewed by Dr. Annel Friedman, who agrees with the diagnosis. . - Technical Note: The immunohistochemical and/or special stains reported were performed with appropriate controls at [facility] ([address], [place] [address]). This test was developed and performance characteristics validated by [facility]. It has not been cleared or approved by the Food and Drug Administration. . 01 Electronically signed: . Debbi Jones DO, Pathologist NPI- [id number] . 01 Gross description: . Received in formalin with two patient identifiers and left breast 2 o'clock 8 cm FN, is a 2.4 x 1.0 x 0.3 cm aggregate of red-brown clotted blood with minimal embedded adipose tissue. The specimen is entirely submitted in cassette A1. . The specimen was collected at 0954 hours on 04/14/2025, for a total formalin fixation time of approximately 60 hours. ([id number]) /[place] 04/16/2025 0822 Local . 01 Pathologist provided ICD-10: C50.912 . 01 CPT . 867841, [id number], [id number], [id number], 275700, [id number], [id number] Performed at: [address], [place], [place] [id number] MD Anibal Ramos MD Phone: [phone]
--- NOTE | 2025-04-14 08:26 | DI.MG.S_ITS ---
MM clip placement LT: 04/14/2025. BI-RADS: None CLINICAL: 79-year old female for left diagnostic mammogram. Mammogram is performed after US guided biopsy to assess marker location. Tyrer-Cuzick lifetime risk of 3.2%. No personal or first-degree family history of breast cancer. The patient had a prior left breast biopsy. PRIOR EXAMS: Comparison is made with relevant prior imaging in PACS including the most recent: Mammogram(s): 03/05/2025, 12/28/2024. Breast Ultrasound(s): 03/05/2025. Five Other Exams on 12/27/2022, 11/25/2020, 02/26/2019, 11/08/2015. MAMMOGRAPHY TECHNIQUE: 2D and/or 3D (tomosynthesis) digital mammographic views obtained, with additional images as needed for full coverage. 2D and/or 3D (tomosynthesis) digital mammographic views obtained, with additional images as needed for full coverage. DENSITY Left: B. There are scattered areas of fibroglandular density. OVERALL ASSESSMENT CATEGORY BI-RADS None: This exam requires no BI-RADS. ELECTRONICALLY SIGNED: Deven Wiggins MD on 04/16/2025 at 09:51:23 AM PT
--- NOTE | 2025-04-14 08:26 | DI.US.S_ITS ---
Left US bx breast perc w vac device: 04/14/2025. CLINICAL: 79-year old female for left procedure that resulted from diagnostic mammogram on 03/05/2025. Patient presents for ultrasound guided biopsy of a mass. Tyrer- Cuzick lifetime risk of 3.2%. No personal or first-degree family history of breast cancer. The patient had a prior left breast biopsy. PRIOR EXAMS: Comparison is made with relevant prior imaging in PACS including the most recent: Breast Ultrasound exam(s). Mammogram(s). FINDINGS Initial imaging confirmed presence and location of target(s) appropriate for biopsy. CONSENT Risks including but not limited to bleeding and infection, benefits and alternatives were discussed with the patient. The patient agreed to the procedure and signed informed consent. Time out procedure was used. ROUTINE Patient positioned in the supine or supine-oblique position, prepped and draped in the usual manner using sterile technique. TECHNIQUE Left: Upper Outer at 2:00, 8 cm from nipple: Procedure: Ultrasound-guided vacuum-assisted biopsy of a mass. Device: Vacuum-assisted biopsy instrument. Conclusion: Ultrasound-guided Vacuum-assisted biopsy, Left: Upper Outer at 2:00, 8 cm from nipple PROCEDURE NOTE The breast was compressed to achieve hemostasis. COMPLICATIONS Minor bleeding occurred which was controlled with direct pressure, ice and/or linette wrap. DISPOSITION The patient left our department in good condition with aftercare instructions and urged to contact us should any problem arise. SUMMARY Left: Upper Outer at 2:00, 8 cm from nipple: Ultrasound-guided vacuum- assisted biopsy of a mass. ELECTRONICALLY SIGNED: Deven Wiggins MD on 04/16/2025 at 09:48:28 AM PT
== END ==
PROVIDERS: PCP Internal Medicine; Referring Provider Internal Medicine; Visit Provider Internal Medicine
DX: C50.412 Malignant neoplasm of upper-outer quadrant of left female breast (principal); Z17.1 Estrogen receptor negative status [ER-]; Z17.22 Progesterone receptor negative status
CPT/HCPCS: 19083; 77065